=== PATIENT | female | born 1945 | race Caucasian/White ===

== ENCOUNTER 2017-02-28 10:53 | Outpatient (CLI) | payer MEDICARE ==
[2017-02-28 11:26] LABS: #Basophils 0.1 thou/uL (0.0-0.2); #Eosinphils 0.2 thou/uL (0.0-0.7); #Lymphocytes 0.8 thou/uL (1.20-3.40); #Monocytes 0.4 thou/uL (0.11-0.59); #Neutrophils 4.9 thou/uL (1.40-6.50); %Basophils 0.9 % (0.0-1.0); %Eosinophils 3.2 % (0.0-10.0); %Monocytes 6.1 % (0.0-10.0); %Neutrophils 77.8 % (42.0-75.0); Hemoglobin 12.1 g/dL (12.0-16.0); Mean Corpuscular HGB CONC 34.5 g/dL (32.0-36.0); Mean Corpuscular Volume 89.8 fl (81.0-99.0); Mean Platelet Volume 7.6 fL (7.4-10.4); Platelet Count 184 thou/uL (130-400); RBC Distribution Width 12.8 % (11.5-14.5); Red Blood Cell (RBC) Count 3.91 mill/uL (4.20-5.40); White Blood Cell (WBC) Count 6.2 thou/uL (4.8-10.8)
[2017-02-28 11:34] LABS: ALT (SGPT) 14 U/L (8-55); AST (SGOT) 16 U/L (5-34); Albumin 3.8 g/dL (3.4-4.8); Alkaline Phosphatase 102 U/L (40-150); Anion Gap 13 mmol/L (10-20); BUN (Urea Nitrogen) 14 mg/dL (9.8-20.1); Bilirubin, Total 0.6 mg/dL (0.2-1.2); Calc. Creatinine Clearance 0 mL/min (70-130); Calcium 9.8 mg/dL (7.8-10.44); Carbon Dioxide 23 mmol/L (23-31); Cardiac Risk 2.5 (Less than 4.5); Chloride 99 mmol/L (98-107); Cholesterol 150 mg/dl (< 200 Desired); Estimated GFR-MDRD Greater than 90; Globulin 2.8 g/dL (2.4-3.5); Glucose 95 mg/dL (83-110); HDL Cholesterol 59 mg/dL (>60 Neg Risk); LDL Cholesterol, Calculated 81 mg/dL; Potassium 4.5 mmol/L (3.5-5.1); Protein, Total 6.6 g/dL (6.0-8.3); Sodium 130 mmol/L (136-145); Triglycerides 50 mg/dL (Less than 150)
[2017-02-28 11:50] LABS: Free T4 (Free Thyroxine) 0.71 ng/dL (0.70-1.48); Thyroid Stimulating Hormone 0.8556 uIU/mL (0.35-4.94)
== END 2017-02-28 10:54 | disposition home or self-care (01) ==
LOC: MADLABBHPM 10:53
PROVIDERS: ATTEND Family Medicine
DX: I48.91 Unspecified atrial fibrillation (principal); E03.9 Hypothyroidism, unspecified; E78.5 Hyperlipidemia, unspecified
CPT/HCPCS: 36415; 80053; 80061; 84439; 84443; 84481; 85025

== ENCOUNTER 2018-02-21 12:57 | Outpatient (CLI) | payer MEDICARE ==
--- NOTE | 2018-02-21 14:03 | RAD ---
PA AND LATERAL OF THE CHEST: INDICATION: Irregular heartbeat. COMPARISON: Prior exam dated 04/01/14 and 07/04/17. FINDINGS: There is cardiomegaly with pulmonary vascular congestion. Costophrenic angles are excluded. There i s a dual-lead pacemaker overlying the left chest wall. IMPRESSION: Cardiomegaly with pulmonary vascular congestion. Recommend correlation. POS: [facility]
== END 2018-02-21 12:58 | disposition home or self-care (01) ==
LOC: MADRAD 12:57
PROVIDERS: ATTEND Internal Medicine Cardiovascular Disease
DX: Z48.812 Encounter for surgical aftercare following surgery on the circulatory system (principal); I51.7 Cardiomegaly; R09.89 Other specified symptoms and signs involving the circulatory and respiratory systems; Z95.0 Presence of cardiac pacemaker
CPT/HCPCS: 71046

== ENCOUNTER 2018-05-21 09:56 | Emergency (ER) | payer MEDICARE ==
[2018-05-21 10:42] LABS: #Basophils 0.1 thou/uL (0.0-0.2); #Eosinphils 0.2 thou/uL (0.0-0.7); #Lymphocytes 0.5 thou/uL (1.20-3.40); #Monocytes 0.6 thou/uL (0.11-0.59); #Neutrophils 7.7 thou/uL (1.40-6.50); %Basophils 0.6 % (0.0-1.0); %Eosinophils 1.9 % (0.0-10.0); %Lymphocytes 5.8 % (21.0-51.0); %Monocytes 6.5 % (0.0-10.0); %Neutrophils 85.1 % (42.0-75.0); Hemoglobin 10.5 g/dL (12.0-16.0); Mean Corpuscular HGB CONC 33.2 g/dL (32.0-36.0); Mean Corpuscular Hemoglobin 28.5 pg (27.0-31.0); Mean Corpuscular Volume 85.7 fL (78.0-98.0); Mean Platelet Volume 7.6 fL (7.4-10.4); Platelet Count 240 thou/uL (130-400); RBC Distribution Width 14.1 % (11.5-14.5); Red Blood Cell (RBC) Count 3.69 mill/uL (4.20-5.40)
[2018-05-21 10:50] LABS: Bilirubin Negative (Negative); Blood, Urine Moderate (Negative); Glucose, Urine (Dipstick) Negative (Negative); Leukocyte Moderate (Negative); Nitrite Positive (Negative); Protein, Urine (Dipstick) Trace mg/dL (Neg-Trace); Specific Gravity, Urine 1.015 (1.005-1.030); pH, Urine 8.5 (5.0-9.0)
[2018-05-21 10:53] LABS: Clarity Hazy (Clear)
[2018-05-21 10:54] LABS: Bacteria/HPF 3+ HPF (None Seen); Squamous Epithelial 0-3 HPF (0-3)
[2018-05-21 11:00] LABS: Anion Gap 10 mmol/L (10-20); BUN (Urea Nitrogen) 12 mg/dL (9.8-20.1); CK (CPK) 58 U/L (29-168); Calc. Creatinine Clearance 0 mL/min (70-130); Calcium 9.9 mg/dL (7.8-10.44); Carbon Dioxide 31 mmol/L (23-31); Chloride 94 mmol/L (98-107); Estimated GFR-MDRD 90; Glucose 139 mg/dL (83-110); Potassium 4.2 mmol/L (3.5-5.1); Sodium 131 mmol/L (136-145)
[2018-05-21 11:03] LABS: CKMB 1.8 ng/mL (0-6.6); Troponin I Less than 0.010 ng/mL (< 0.028)
[2018-05-21] MEDS ORDERED: Levofloxacin 500 mg/D5W 100 ml Premix Bag ONE (11:16)
[2018-05-21] MEDS ORDERED: Furosemide 40 MG/4 ML VIAL ONE (11:29)
[2018-05-21] MEDS ORDERED: Furosemide 20 MG/2 ML VIAL ONE (11:29)
--- NOTE | 2018-05-21 11:42 | RAD ---
CHEST ONE VIEW: HISTORY: Dyspnea. Chest pain. COMPARISON: Radiograph from 03/09/2018. FINDINGS: The lungs are mildly hypoinflated. Small left effusion. Mild pulmonary venous congestion and pulmon olga edema. Mild cardiomegaly. Old right humeral diaphyseal fracture. IMPRESSION: 1. Cardiomegaly. 2. Small left effusion. 3. Pulmonary venous congestion. POS: [facility]
== END 2018-05-21 12:17 | disposition short-term general hospital (02) ==
LOC: MADERS 09:56
DX: I11.0 Hypertensive heart disease with heart failure (principal); I50.9 Heart failure, unspecified; E78.5 Hyperlipidemia, unspecified; I48.91 Unspecified atrial fibrillation; E03.9 Hypothyroidism, unspecified; F31.9 Bipolar disorder, unspecified; J44.9 Chronic obstructive pulmonary disease, unspecified; Z86.73 Personal history of transient ischemic attack (TIA), and cerebral infarction without residual deficits
CPT/HCPCS: 36415; 71045; 80048; 81003; 81015; 82553; 83880; 84484; 85025; 87040; 87077; 87086; 87186; 93005; 94760; 96365; 96375; J1940; J1956

== ENCOUNTER 2018-05-24 18:49 | Inpatient (IN) | payer MEDICARE ==
[2018-05-25] MEDS ORDERED: Pancrelipase DR 12000 1 CAP FS PRN (00:21)
[2018-05-25] MEDS ORDERED: Sodium Bicarbonate Tab 325 MG TAB PER TUBE PRN (00:21)
[2018-05-25] MEDS ORDERED: Polyethylene Glycol 3350 17 GM Packet PER TUBE PRN (00:26)
[2018-05-25] MEDS ORDERED: Bisacodyl 10 MG SUPP PR PRN (00:27)
[2018-05-25] MEDS ORDERED: Ondansetron ODT 4 MG TAB SL PRN (00:27)
[2018-05-25] MEDS ORDERED: Albuterol Sulfate 2.5 mg/3 ml Neb NEB PRN (00:28)
[2018-05-25] MEDS: traMADol HCl 50 MG TAB PER TUBE PRN ×2 (04:53→19:18)
[2018-05-25] MEDS: Thyroid 30 MG TAB PER TUBE SCH (05:09)
[2018-05-25] MEDS: Albuterol Sulfate 2.5 mg/3 ml Neb NEB SCH ×2 (08:29→19:18)
[2018-05-25] MEDS: levETIRAcetam 500 mg/5 ml Oral Solution PER TUBE SCH ×2 (08:47→20:21)
[2018-05-25] MEDS: OXcarbazepine 150 MG TAB PER TUBE SCH ×2 (08:47→20:22)
[2018-05-25] MEDS: Acetaminophen 325 MG TAB PER TUBE PRN (08:47)
[2018-05-25] MEDS: Carvedilol 6.25 MG TAB PER TUBE SCH ×2 (08:54→20:20)
[2018-05-25] MEDS: Furosemide 20 MG TAB PER TUBE SCH (08:54)
[2018-05-25] MEDS: Ascorbic Acid 500 mg Chewable Tablet PER TUBE SCH (08:54)
[2018-05-25] MEDS: Oxybutynin 5 MG TAB PER TUBE SCH ×2 (08:54→20:22)
[2018-05-25] MEDS: Lisinopril 10 MG TAB PER TUBE SCH ×2 (08:54→20:21)
[2018-05-25] MEDS: Chlorhexidine Gluconate 15 ML UDCUP SSP SCH ×4 (08:55→20:20)
[2018-05-25] MEDS: Atorvastatin Calcium 10 MG TAB PER TUBE SCH (20:20)
[2018-05-25] MEDS: Escitalopram Oxalate 10 mg Tablet PER TUBE SCH (20:21)
[2018-05-26] MEDS: traMADol HCl 50 MG TAB PER TUBE PRN ×2 (02:20→16:26)
[2018-05-26] MEDS: Thyroid 30 MG TAB PER TUBE SCH (05:30)
[2018-05-26 06:39] LABS: ALT (SGPT) 17 U/L (8-55); AST (SGOT) 15 U/L (5-34); Albumin 2.8 g/dL (3.4-4.8); Alkaline Phosphatase 102 U/L (40-150); Anion Gap 11 mmol/L (10-20); BUN (Urea Nitrogen) 16 mg/dL (9.8-20.1); Bilirubin, Total 0.2 mg/dL (0.2-1.2); Calc. Creatinine Clearance 139 mL/min (70-130); Calcium 9.4 mg/dL (7.8-10.44); Carbon Dioxide 31 mmol/L (23-31); Chloride 96 mmol/L (98-107); Estimated GFR-MDRD Greater than 90; Globulin 2.7 g/dL (2.4-3.5); Glucose 131 mg/dL (83-110); Potassium 3.5 mmol/L (3.5-5.1); Protein, Total 5.5 g/dL (6.0-8.3); Sodium 134 mmol/L (136-145)
[2018-05-26 06:51] LABS: #Basophils 0.1 thou/uL (0.0-0.2); #Eosinphils 0.4 thou/uL (0.0-0.7); #Lymphocytes 0.6 thou/uL (1.20-3.40); #Monocytes 0.6 thou/uL (0.11-0.59); #Neutrophils 5.1 thou/uL (1.40-6.50); %Basophils 1.3 % (0.0-1.0); %Eosinophils 5.6 % (0.0-10.0); %Lymphocytes 9.1 % (21.0-51.0); %Monocytes 8.5 % (0.0-10.0); %Neutrophils 75.5 % (42.0-75.0); Hemoglobin 9.2 g/dL (12.0-16.0); Mean Corpuscular HGB CONC 33.6 g/dL (32.0-36.0); Mean Corpuscular Hemoglobin 28.8 pg (27.0-31.0); Mean Corpuscular Volume 85.7 fL (78.0-98.0); Mean Platelet Volume 7.4 fL (7.4-10.4); Platelet Count 211 thou/uL (130-400); RBC Distribution Width 13.7 % (11.5-14.5); Red Blood Cell (RBC) Count 3.19 mill/uL (4.20-5.40); White Blood Cell (WBC) Count 6.8 thou/uL (4.8-10.8)
[2018-05-26] MEDS: Albuterol Sulfate 2.5 mg/3 ml Neb NEB SCH ×2 (07:32→19:40)
[2018-05-26] MEDS: Carvedilol 6.25 MG TAB PER TUBE SCH ×2 (09:05→20:20)
[2018-05-26] MEDS: Ascorbic Acid 500 mg Chewable Tablet PER TUBE SCH (09:05)
[2018-05-26] MEDS: Oxybutynin 5 MG TAB PER TUBE SCH ×2 (09:05→20:22)
[2018-05-26] MEDS: Lisinopril 10 MG TAB PER TUBE SCH ×2 (09:05→20:21)
[2018-05-26] MEDS: OXcarbazepine 150 MG TAB PER TUBE SCH ×2 (09:05→20:21)
[2018-05-26] MEDS: Acetaminophen 325 MG TAB PER TUBE PRN (09:06)
[2018-05-26] MEDS: Chlorhexidine Gluconate 15 ML UDCUP SSP SCH ×4 (09:06→20:23)
[2018-05-26] MEDS: levETIRAcetam 500 mg/5 ml Oral Solution PER TUBE SCH ×2 (09:06→20:21)
[2018-05-26] MEDS: Atorvastatin Calcium 10 MG TAB PER TUBE SCH (20:19)
[2018-05-26] MEDS: Escitalopram Oxalate 10 mg Tablet PER TUBE SCH (20:20)
[2018-05-26] MEDS: hydrALAZINE 10 MG TAB PO SCH (20:21)
[2018-05-27] MEDS: traMADol HCl 50 MG TAB PER TUBE PRN ×3 (00:46→21:47)
[2018-05-27] MEDS: Albuterol Sulfate 2.5 mg/3 ml Neb NEB SCH ×2 (07:34→18:58)
--- NOTE | 2018-05-27 07:49 | PRG ---
DATE OF SERVICE: 05/26/2018 SUBJECTIVE: The patient says she is feeling good today. She has had a good night sleep. She is doing good with her pureed diet and she had no complaints this morning. OBJECTIVE: GENERAL: The patient is sitting up in bed, eating her oatmeal. She is alert, appears in no distress. VITAL SIGNS: Shows a temp of 97.6, pulse 60, respirations 20, O2 saturation 96% on 2 L, and blood pressure 187/93. LUNGS: Clear. HEART: Regular rate. NEUROLOGIC: The patient has a dense left hemiparalysis and right facial weakness. LABORATORY DATA: Her lab shows a hemoglobin and hematocrit of 9.2 and 27.3, white cell count 6800 with 76% segs, 9% lymphocytes, and platelet count of 211. Sodium 134, potassium 3.5, BUN 16, creatinine 0.53, FBS 131, and albumin 2.8. ASSESSMENT: copy imp from done on 05/25 1. Severe generalized weakness and presently, nonambulatory following a hemorrhagic stroke on 02/28/2018. 2. Diastolic heart failure. a. Acute exacerbation, requiring hospitalization from 05/21/2018 through 05/24/2018 at [place]. b. Echocardiogram on 05/22 showed ejection fraction of 55% to 60%, diastolic dysfunction, moderate-severe dilated left atrium, mild to moderate aortic regurgitation, mild tricuspid regurgitation, and moderate elevated pulmonary artery pressure. 1. History of a large right basal ganglia hemorrhagic stroke while on anticoagulant Xarelto on 02/28/2018. a. Initially required ventilatory support, tracheostomy, and PEG tube with later removal of the trach. b. Leaving the patient with a dense left hemiparalysis and left facial weakness and dysphagia. c. Still required enteral feeding. d. On seizure prophylaxis with Keppra. 2. Dysphagia. a. Secondary to the hemorrhagic stroke on 02/28. b. Required enteral feeding at nighttime through her PEG. c. Improving where she is tolerating a pureed diet with nectar thickened liquids. 3. Hypertension. 4. History of atrial fibrillation. a. Status post multiple ablations. b. Status post pacemaker replacement for bradycardia. c. Had been on Xarelto that was stopped following her hemorrhagic stroke on 02/28. 5. Deep vein thrombosis involving the left leg. a. Status post placement of an inferior vena cava filtration device on 03/15/2018. 6. Hyperlipidemia. 7. Hypothyroidism. 8. Bipolar disorder. PLAN: The patient is doing very well, seems to be tolerating her tube feeding fine and also doing well with her oral feeding with a pureed diet with nectar thickened liquids. She is taking her medicines by these being crushed and mixed with pudding without any difficulty. We will continue present care, PT/OT, and Speech Therapy will continue to work with her. Job ID: [id number]
--- NOTE | 2018-05-27 08:20 | HP ---
CHIEF COMPLAINT: Weakness. PRESENT ILLNESS: The patient is a 72-year-old white female, who has a history of hypertension; atrial fibrillation with multiple ablations, who had been on anticoagulants; bipolar disorder; hypothyroidism; and hyperlipidemia. The patient had had a large hemorrhagic stroke on 02/28/2018, was hospitalized at [facility] from 02/28/2018 until 03/14/2018. This was a large area of hemorrhage involving the right basal ganglia, leaving her with dysphagia and dense left hemiparalysis, initially required ventilatory support and a trach and placement of a PEG. The patient was minimally responsive at the time of her discharge. She was discharged to [facility] on 03/14. There, she developed swelling in her left lower extremity and was sent to [facility] and was found to have a DVT of the left leg. She had an IVC filter placed and then was sent back to the [facility]. At the [facility], she showed gradual improvement and her trach was able to be removed. She was then transferred to [facility] in [place], [place], where she remained until 05/15/2018. While at the rehab center, she did well with her breathing, was able to advance where she was tolerating being up in a chair and was doing better with her swallowing. She has been followed by a speech therapist and was tolerating a blended diet with nectar-thickened liquids, but continued on her enteral feeding through a PEG tube in the night. This care was continued at [facility] with PT and OT continued to assist with her care. The patient was transferred to [facility] on 05/21/2018 because of shortness of breath and low O2 saturation. She was found to be in mild congestive heart failure, and an echocardiogram was done there that showed an ejection fraction of 55% to 60%, there was evidence of diastolic dysfunction, the left atrium was moderately severely dilated. She had moderate aortic regurgitation, mild tricuspid regurgitation, and moderate elevation of the pulmonary artery pressure. She had a very small pericardial effusion with no evidence of tamponade. The patient was treated for the congestive heart failure and diuresed with correction of the hypoxemia and resolution of her sense of shortness of breath. She has been treated now with furosemide 20 mg every other day. She has done well with her eating, with a blended diet and also, she has done well with enteral feeding. There was some difficulty with the enteral feedings. It seems the tube was resistant to flow. This was evaluated by aircraft layout worker, Dr. Killian, and she underwent radiologic studies with instillation of dye through the G-tube on 05/24, which showed that the tube was working well, was in good position, and no obstruction, and flushed well. Since then, her feedings in the evening have gone well. The patient's condition improved and it was elected to bring her to [facility] for purpose of continued physical therapy, G-tube feeding, and continued speech therapy. She also, on admission, was found to have an abnormal urine culture, growing Pseudomonas aeruginosa from the culture of 05/21. The organism was resistant to the ceftriaxone that she was receiving, but sensitive to cefepime, ceftazidime, meropenem, and tobramycin. The patient has indwelling Araujo catheter. The patient was seen in consult by Dr. Franco, Infectious Disease, who felt that the patient had no firm clinical or laboratory evidence to suggest invasive urinary tract infection and he advised withholding antibiotic therapy and discontinuation of the Araujo catheter with watching to be sure she does not develop any significant interval retention. The patient was transferred to [facility] on the evening of 05/24/2018. Her G-tube feedings for the night have gone well. This morning, she has been up and eating her blended diet and is taking her medicines, crushed and mixed with pudding without any difficulty. Her , Fredis Ziegler, is with her and I had an opportunity to review her records as mentioned above and visit with him. She has had no new complaint. PAST MEDICAL HISTORY: Hypertension; atrial fibrillation, status post multiple ablations, had been on Xarelto, which was stopped at the time of her hemorrhagic stroke on 02/28; she has hypothyroidism; hyperlipidemia; bipolar disorder. Large right basal ganglia hemorrhagic stroke while on Xarelto on 02/28/2018, leaving her with dysphagia and dense left hemiparalysis. PAST SURGICAL HISTORY: She has had multiple cardiac ablations for the atrial fibrillation, pacemaker placement for bradycardia, appendectomy, cholecystectomy, hysterectomy, trach placement and later removal, PEG tube placement, and placement of an inferior VC filter on 03/15/2018. PRESENT MEDICATIONS: 1. Acetaminophen 650 mg every 4 hours per G-tube as needed. 2. Albuterol inhalation solution by nebulizer b.i.d. and every 6 hours as needed. 3. Vitamin C 500 mg per G-tube daily. 4. Atorvastatin 5 mg per G-tube daily. 5. Dulcolax 10 mg suppository 1 daily p.r.n. constipation. 6. Carvedilol 6.25 mg per G-tube b.i.d. 7. Chlorhexidine gluconate 15 mL to swish in her mouth four times a day. 8. Lexapro 20 mg daily. 9. Furosemide 20 mg per G-tube every 48 hours. 10. Keppra 500 mg per G-tube b.i.d. for seizure prophylaxis. 11. Lisinopril 20 mg per G-tube b.i.d. 12. Zofran 4 mg sublingual p.r.n. nausea. 13. Trileptal 600 mg per G-tube at bedtime. 14. Trileptal 300 mg . 15. Oxybutynin 5 mg per G-tube b.i.d. 16. MiraLAX 17 g per G-tube daily as needed. 17. Pacific Thyroid 180 mg per G-tube daily. 18. Tramadol 50 mg every 8 hours per G-tube p.r.n. ALLERGIES: CODEINE, FISH PRODUCTS, PENICILLIN, PROPAFENONE, AND SHELLFISH. REVIEW OF SYSTEMS: GENERAL: The patient thinks she is doing better. She had no complaint today. HEENT: She denies any headaches. She thinks she is doing better with her oral feedings. PULMONARY: No shortness of breath. CARDIOVASCULAR: No chest pain. GI: No nausea or vomiting. Being fed via enteral feeding during the night and diet that is pureed with nectar-thickened liquids orally during the day. NEUROPSYCHIATRIC: The patient had a repeat CT scan while hospitalized at [place] on 05/22/2018 that shows interval decrease in the density of the large left subacute hematoma of the right basal ganglia with decrease in the associated mass effect. No midline shift. HABITS: Alcohol, none. Tobacco, none. SOCIAL HISTORY: The patient is and , Fredis Ziegler, had been very attentive during her hospitalization and convalescence. CODE STATUS: Full code. PHYSICAL EXAMINATION: GENERAL: Shows a pleasant 72-year-old white female, who is sitting up in bed and eating her pureed breakfast. She appears in no distress. VITAL SIGNS: Her temperature is 97.7, her pulse is 61, blood pressure 186/93, respirations 18, O2 saturation 96% on room air. HEENT: Her head, normocephalic. Eyes, pupils are equal, round, and reactive. Ears, left TM blocked by some cerumen. Right TM clear. Nose normal. Mouth and throat normal. The patient has mild left facial weakness. NECK: Carotids are equal and strong. No bruits. Thyroid not enlarged. LUNGS: Clear. HEART: Regular rate. The patient has a well-healed incision of the left upper anterior chest from her pacemaker placement. Her heart has regular rate. No murmurs. ABDOMEN: G-tube is in the left upper quadrant. Site is clean. There is no drainage. Abdomen, soft and nontender. EXTREMITIES: No edema. NEUROLOGIC: The patient is alert, recognizes me. Her speech is good. The patient has a very dense left hemiparalysis and some mild left facial weakness. IMPRESSION: 1. Severe generalized weakness and presently, nonambulatory following a hemorrhagic stroke on 02/28/2018. 2. Diastolic heart failure. a. Acute exacerbation, requiring hospitalization from 05/21/2018 through 05/24/2018 at [place]. b. Echocardiogram on 05/22 showed ejection fraction of 55% to 60%, diastolic dysfunction, moderate-severe dilated left atrium, mild to moderate aortic regurgitation, mild tricuspid regurgitation, and moderate elevated pulmonary artery pressure. 3. History of a large right basal ganglia hemorrhagic stroke while on anticoagulant Xarelto on 02/28/2018. a. Initially required ventilatory support, tracheostomy, and PEG tube with later removal of the trach. b. Leaving the patient with a dense left hemiparalysis and left facial weakness and dysphagia. c. Still required enteral feeding. d. On seizure prophylaxis with Keppra. 4. Dysphagia. a. Secondary to the hemorrhagic stroke on 02/28. b. Required enteral feeding at nighttime through her PEG. c. Improving where she is tolerating a pureed diet with nectar thickened liquids. 5. Hypertension. 6. History of atrial fibrillation. a. Status post multiple ablations. b. Status post pacemaker replacement for bradycardia. c. Had been on Xarelto that was stopped following her hemorrhagic stroke on 02/28. 7. Deep vein thrombosis involving the left leg. a. Status post placement of an inferior vena cava filtration device on 03/15/2018. 8. Hyperlipidemia. 9. Hypothyroidism. 10. Bipolar disorder. PLAN: The patient has been admitted to [facility] for PT, OT, and speech therapy. We will continue on her present medicines. Her blood pressure was elevated this morning, but she has not yet had any antihypertensive, this will be monitored. We will continue the stroke prophylaxis with the Keppra. The patient is on sequential compression devices for the lower legs. All meals will be with her sitting directly upright and we will continue the enteral feeding during the night. See orders. Job ID: [id number]
[2018-05-27] MEDS: Carvedilol 6.25 MG TAB PER TUBE SCH ×2 (09:24→22:12)
[2018-05-27] MEDS: Lisinopril 10 MG TAB PER TUBE SCH ×2 (09:24→21:28)
[2018-05-27] MEDS: levETIRAcetam 500 mg/5 ml Oral Solution PER TUBE SCH ×2 (09:24→21:29)
[2018-05-27] MEDS: hydrALAZINE 10 MG TAB PO SCH ×2 (09:25→21:35)
[2018-05-27] MEDS: Ascorbic Acid 500 mg Chewable Tablet PER TUBE SCH (09:26)
[2018-05-27] MEDS: OXcarbazepine 150 MG TAB PER TUBE SCH ×2 (09:26→21:27)
[2018-05-27] MEDS: Furosemide 20 MG TAB PER TUBE SCH (09:26)
[2018-05-27] MEDS: Chlorhexidine Gluconate 15 ML UDCUP SSP SCH ×4 (09:26→21:38)
[2018-05-27] MEDS: Oxybutynin 5 MG TAB PER TUBE SCH ×2 (09:26→21:28)
--- NOTE | 2018-05-27 10:14 | PRG ---
DATE OF SERVICE: 05/27/2018 SUBJECTIVE: The patient had a good night. Nurses said everything went well with her. She slept well. Her tube feeding has been going well. Yesterday, she did well with her pureed diet. This morning, she has no complaint. OBJECTIVE: GENERAL: The patient is lying in bed with the head of the bed elevated. She is alert, appears comfortable, in no distress. VITAL SIGNS: Her temp is 97.9, pulse 65, respirations 18, O2 saturation 97%, and blood pressure 187/91. Has not yet had morning medications. Last evening pressure 170/75. Was just started on hydralazine 10 mg b.i.d. yesterday. LUNGS: Clear. HEART: Regular rate. EXTREMITIES: No edema. NEUROLOGIC: The patient has dense left hemiparalysis. ASSESSMENT: 1. Diastolic congestive heart failure. a. Resolved with no evidence of recurrence as of 05/27/2018. 2. History of a large right basal ganglia hemorrhagic stroke while on Xarelto. a. It has left the patient with a dense left hemiparalysis and aphasia and presently nonambulatory. b. Stable with recent CT scan showing some decrease in the area of the stroke. 3. Dysphagia. a. Secondary to the hemorrhagic stroke. b. Improved, presently tolerating oral feedings with a pureed diet, nectar-thickened liquids, and enteral feedings through a PEG tube at night. 4. Hypertension. a. Controlled, not adequate, but a little better than yesterday as of 05/27. 5. Hypothyroidism. 6. History of atrial fibrillation. a. Status post multiple ablations. b. Had been on Xarelto, which was stopped after the hemorrhagic stroke in February 2018. 7. Deep vein thrombosis of the left lower leg. a. Status post inferior vena cava filtration placement. 8. Bipolar disorder. a. Controlled. 9. Seizure prophylaxis. a. No seizures as of 05/27/2018. PLAN: Continue present care. Continue PT, OT, and Speech Therapy. Job ID: [id number]
[2018-05-27] MEDS: Acetaminophen 325 MG TAB PER TUBE PRN (15:43)
[2018-05-27] MEDS: Thyroid 30 MG TAB PER TUBE SCH (18:54)
[2018-05-27] MEDS: Atorvastatin Calcium 10 MG TAB PER TUBE SCH (21:27)
[2018-05-27] MEDS: Escitalopram Oxalate 10 mg Tablet PER TUBE SCH (21:28)
[2018-05-28] MEDS: Thyroid 30 MG TAB PER TUBE SCH (05:32)
[2018-05-28] MEDS: Albuterol Sulfate 2.5 mg/3 ml Neb NEB SCH ×2 (07:31→18:07)
[2018-05-28] MEDS: OXcarbazepine 150 MG TAB PER TUBE SCH ×2 (09:21→20:03)
[2018-05-28] MEDS: Ascorbic Acid 500 mg Chewable Tablet PER TUBE SCH (09:21)
[2018-05-28] MEDS: Chlorhexidine Gluconate 15 ML UDCUP SSP SCH ×4 (09:21→20:04)
[2018-05-28] MEDS: Oxybutynin 5 MG TAB PER TUBE SCH ×2 (09:21→20:06)
[2018-05-28] MEDS: Carvedilol 6.25 MG TAB PER TUBE SCH ×2 (09:21→20:04)
[2018-05-28] MEDS: Lisinopril 10 MG TAB PER TUBE SCH ×2 (09:21→20:03)
[2018-05-28] MEDS: levETIRAcetam 500 mg/5 ml Oral Solution PER TUBE SCH ×2 (09:21→20:03)
[2018-05-28] MEDS: traMADol HCl 50 MG TAB PER TUBE PRN ×2 (09:27→17:41)
[2018-05-28] MEDS: hydrALAZINE 25 MG TAB PO SCH ×2 (09:39→20:05)
[2018-05-28] MEDS ORDERED: Sodium Chloride Irrig Solution 250 ML BOT ONE (10:00)
[2018-05-28] MEDS: Acetaminophen 325 MG TAB PER TUBE PRN ×2 (12:33→20:17)
--- NOTE | 2018-05-28 13:50 | PRG ---
DATE OF SERVICE: 05/28/2018 SUBJECTIVE: The patient said she had a good night. Nurses says she has been doing fine. She is taking her medicines, crushed into pudding without any problems. She is eating the pureed diet some, but not enough to where she can sustain her nutrition and fluid requirements by oral feeding alone. The tube feedings at night are going well. She is receiving the Jevity 1.5 calories/mL, at 55 mL/hr, and water at 35 mL/hr during the night. OBJECTIVE: GENERAL: The patient is lying in bed with the head elevated and turned on her left side. She is alert and talkative. Appears very comfortable and in no distress. VITAL SIGNS: Her vital signs show a temperature of 97.3, pulse 64, respirations 16, and O2 sat 99%. Her blood pressure this morning was 199/96, last evening 168/71. LUNGS: Clear. HEART: Regular rate. NEUROLOGIC: The patient is alert. She is talkative, but sometimes a little slow to answer our questions. She has a dense left hemiparalysis. ASSESSMENT: 1. Severe generalized weakness and presently, nonambulatory following a hemorrhagic stroke on 02/28/2018. 2. Diastolic heart failure. a. Acute exacerbation, requiring hospitalization from 05/21/2018 through 05/24/2018 at [place]. b. Echocardiogram on 05/22 showed ejection fraction of 55% to 60%, diastolic dysfunction, moderate-severe dilated left atrium, mild to moderate aortic regurgitation, mild tricuspid regurgitation, and moderate elevated pulmonary artery pressure. c. No evidence of acute congestive heart failure as of 05/28/2018. 1. History of a large right basal ganglia hemorrhagic stroke while on anticoagulant Xarelto on 02/28/2018. a. Initially required ventilatory support, tracheostomy, and PEG tube with later removal of the trach. b. Leaving the patient with a dense left hemiparalysis and left facial weakness and dysphagia. c. Still required enteral feeding. d. On seizure prophylaxis with Keppra. e. Stable as of 05/28/2018. 2. Dysphagia. a. Secondary to the hemorrhagic stroke on 02/28. b. Required enteral feeding at nighttime through her PEG. c. Stable. Tolerating pureed diet with nectar thickened liquids and nighttime enteral feeding as of 05/28/2018. 3. Hypertension. 4. History of atrial fibrillation. a. Status post multiple ablations. b. Status post pacemaker replacement for bradycardia. c. Had been on Xarelto that was stopped following her hemorrhagic stroke on 02/28. 5. Deep vein thrombosis involving the left leg. a. Status post placement of an inferior vena cava filtration device on 03/15/2018. 6. Hyperlipidemia. 7. Hypothyroidism. 8. Bipolar disorder. PLAN: Continue present care. Continue PT and OT. Continue the nighttime enteral feedings. Job ID: [id number]
[2018-05-28] MEDS: Escitalopram Oxalate 10 mg Tablet PER TUBE SCH (20:04)
[2018-05-28] MEDS: Atorvastatin Calcium 10 MG TAB PER TUBE SCH (20:10)
[2018-05-29] MEDS: traMADol HCl 50 MG TAB PER TUBE PRN ×4 (00:20→22:07)
[2018-05-29] MEDS: Acetaminophen 325 MG TAB PER TUBE PRN ×2 (04:35→14:34)
[2018-05-29] MEDS: Thyroid 30 MG TAB PER TUBE SCH (06:07)
[2018-05-29] MEDS: Albuterol Sulfate 2.5 mg/3 ml Neb NEB SCH ×2 (06:08→18:25)
[2018-05-29] MEDS: OXcarbazepine 150 MG TAB PER TUBE SCH ×2 (09:21→21:12)
[2018-05-29] MEDS: hydrALAZINE 25 MG TAB PO SCH ×3 (09:21→21:11)
[2018-05-29] MEDS: Carvedilol 6.25 MG TAB PER TUBE SCH ×2 (09:21→21:11)
[2018-05-29] MEDS: Lisinopril 10 MG TAB PER TUBE SCH ×2 (09:21→21:12)
[2018-05-29] MEDS: Furosemide 20 MG TAB PER TUBE SCH (09:21)
[2018-05-29] MEDS: Oxybutynin 5 MG TAB PER TUBE SCH ×2 (09:21→21:12)
[2018-05-29] MEDS: Ascorbic Acid 500 mg Chewable Tablet PER TUBE SCH (09:22)
[2018-05-29] MEDS: Chlorhexidine Gluconate 15 ML UDCUP SSP SCH ×4 (09:22→21:11)
[2018-05-29] MEDS: levETIRAcetam 500 mg/5 ml Oral Solution PER TUBE SCH ×2 (09:22→21:12)
--- NOTE | 2018-05-29 14:43 | PRG ---
DATE OF SERVICE: 05/29/2018 SUBJECTIVE: The patient said she had a good night. She had no complaint. OBJECTIVE: GENERAL: The patient is lying in bed with the head of the bed elevated. She is awake and talkative. VITAL SIGNS: Her temperature is 97.1, pulse 63, respirations 18, O2 saturation 98% on a 0.5 L. Blood pressure 183/85, last evening was 168/71. LUNGS: Clear. HEART: Regular rate. NEUROLOGIC: The patient is alert, has a dense left hemiparalysis. ASSESSMENT: 1. Severe generalized weakness. a. Essentially bed confined. Requiring assistance with all ADLs as of 05/29. 2. Diastolic heart failure. a. Acute exacerbation, requiring hospitalization from 05/21/2018 through at [place]. b. Echocardiogram on 05/22 showed ejection fraction of 55% to 60%, diastolic dysfunction, moderate-severe dilated left atrium, mild to moderate aortic regurgitation, mild tricuspid regurgitation, and moderate elevated pulmonary artery pressure. c. No evidence of acute congestive heart failure as of 05/29/2018. 3. History of a large right basal ganglia hemorrhagic stroke while on anticoagulant Xarelto on 02/28/2018. a. Initially required ventilatory support, tracheostomy, and PEG tube with later removal of the trach. b. Leaving the patient with a dense left hemiparalysis and left facial weakness and dysphagia. c. Still requires enteral feeding at night. d. On seizure prophylaxis with Keppra. e. Stable as of 05/28/2018. 4. Dysphagia. a. Secondary to the hemorrhagic stroke on 02/28. b. Requires enteral feeding at nighttime through her PEG. c. Stable. Tolerating pureed diet with nectar thickened liquids during the day and nighttime enteral feeding as of 05/29/2018. 5. Hypertension. a. Still not adequately controlled.64. History of atrial fibrillation. a. Status post multiple ablations. b. Status post pacemaker replacement for bradycardia. c. Regular rate, rate controlled as of 05/29. d. Had been on Xarelto that was stopped following her hemorrhagic stroke on 02/28/2018. 6. Deep vein thrombosis involving the left leg. a. Status post placement of an inferior vena cava filtration device on . 7. Hyperlipidemia. 8. Hypothyroidism. 9. Bipolar disorder. PLAN: Continue present care. Continue PT and OT. Job ID: [id number] [facility]
[2018-05-29 17:54] VITALS: BMI 31.9
[2018-05-29] MEDS: Atorvastatin Calcium 10 MG TAB PER TUBE SCH (21:10)
[2018-05-29] MEDS: Escitalopram Oxalate 10 mg Tablet PER TUBE SCH (21:11)
[2018-05-30] MEDS: Thyroid 30 MG TAB PER TUBE SCH (05:29)
[2018-05-30] MEDS: traMADol HCl 50 MG TAB PER TUBE PRN ×3 (05:40→20:09)
[2018-05-30] MEDS: Albuterol Sulfate 2.5 mg/3 ml Neb NEB SCH ×2 (07:27→19:00)
[2018-05-30] MEDS: Ascorbic Acid 500 mg Chewable Tablet PER TUBE SCH (08:54)
[2018-05-30] MEDS: Acetaminophen 325 MG TAB PER TUBE PRN (08:54)
[2018-05-30] MEDS: Lisinopril 10 MG TAB PER TUBE SCH ×2 (08:54→20:10)
[2018-05-30] MEDS: Carvedilol 6.25 MG TAB PER TUBE SCH ×2 (08:54→20:11)
[2018-05-30] MEDS: levETIRAcetam 500 mg/5 ml Oral Solution PER TUBE SCH ×2 (08:54→20:12)
[2018-05-30] MEDS: Oxybutynin 5 MG TAB PER TUBE SCH ×2 (08:55→20:10)
[2018-05-30] MEDS: Chlorhexidine Gluconate 15 ML UDCUP SSP SCH ×4 (08:55→20:13)
[2018-05-30] MEDS: hydrALAZINE 25 MG TAB PO SCH ×3 (08:55→20:30)
[2018-05-30] MEDS: OXcarbazepine 150 MG TAB PER TUBE SCH ×2 (08:57→20:10)
[2018-05-30] MEDS: Clotrimazole 1% Cream 15 GM TUBE TOP SCH ×2 (10:30→20:13)
--- NOTE | 2018-05-30 15:46 | PRG ---
DATE OF SERVICE: 05/30/2018 SUBJECTIVE: The patient says she is doing good this morning. Last evening, she was having a little bit more discomfort particularly in her back, hips, and shoulders. Yesterday, she had been up more in a wheelchair. Last evening, she was given tramadol and the interval was changed from 8 hour p.r.n. to 6 hours p.r.n. and this added dose of tramadol helped and she was able to sleep. Nurses report there is some redness beneath her breast and in the perineal area, for which she will be given clotrimazole cream. OBJECTIVE: GENERAL: The patient is lying in the bed with the head of the bed elevated about 45 degrees. She is alert, talkative, and recognizes me. VITAL SIGNS: Shows a temp 97.6, pulse 63, respirations 20, O2 saturation 97% on 2 L, and blood pressure 158/75. LUNGS: Clear. HEART: Regular rate. NEUROLOGIC: The patient is alert, sometimes a little slow in answering questions , but speech is very clear and understandable. She has a dense left hemiparalysis. ASSESSMENT: 1. Severe generalized weakness. a. Essentially bed confined. Requiring assistance with all ADLs as of 05/29. b. Improved where she is tolerating up in a wheelchair as of 05/30/2018. 2. Diastolic heart failure. a. Acute exacerbation, requiring hospitalization from 05/21/2018 through at [place]. b. Echocardiogram on 05/22 showed ejection fraction of 55% to 60%, diastolic dysfunction, moderate-severe dilated left atrium, mild to moderate aortic regurgitation, mild tricuspid regurgitation, and moderate elevated pulmonary artery pressure. c. No evidence of acute congestive heart failure as of 05/30/2018. 3. History of a large right basal ganglia hemorrhagic stroke while on anticoagulant Xarelto on 02/28/2018. a. Initially required ventilatory support, tracheostomy, and PEG tube with later removal of the trach. b. Leaving the patient with a dense left hemiparalysis and left facial weakness and dysphagia. c. Still requires enteral feeding at night. d. On seizure prophylaxis with Keppra. e. Stable as of 05/30/2018. 4. Dysphagia. a. Secondary to the hemorrhagic stroke on 02/28. b. Requires enteral feeding at nighttime through her PEG. c. Stable. Tolerating pureed diet with nectar thickened liquids during the day and nighttime enteral feeding as of 05/30/2018. 5. Hypertension. a. Control improved as of 05/30/2018. 6. History of atrial fibrillation. a. Status post multiple ablations. b. Status post pacemaker replacement for bradycardia. c. Regular rate, rate controlled as of 05/29. d. Had been on Xarelto that was stopped following her hemorrhagic stroke on 02/28/2018. 7. Deep vein thrombosis involving the left leg. a. Status post placement of an inferior vena cava filtration device on 2017. 8. Hyperlipidemia. 9. Hypothyroidism. 10. Bipolar disorder. PLAN: 1. Continue PT and OT. 2. We will order clotrimazole cream for the intertriginous areas b.i.d. Blood pressure is better after the hydralazine has been up to 25 mg t.i.d. We will continue this and continue to monitor BP. Job ID: [id number] [facility]
[2018-05-30] MEDS: Escitalopram Oxalate 10 mg Tablet PER TUBE SCH (20:08)
[2018-05-30] MEDS: Atorvastatin Calcium 10 MG TAB PER TUBE SCH (20:11)
[2018-05-31] MEDS: Thyroid 30 MG TAB PER TUBE SCH (05:47)
[2018-05-31] MEDS: Albuterol Sulfate 2.5 mg/3 ml Neb NEB SCH (06:00)
[2018-05-31] MEDS: traMADol HCl 50 MG TAB PER TUBE PRN (08:15)
[2018-05-31] MEDS: Oxybutynin 5 MG TAB PER TUBE SCH (08:16)
[2018-05-31] MEDS: Lisinopril 10 MG TAB PER TUBE SCH (08:16)
[2018-05-31] MEDS: Ascorbic Acid 500 mg Chewable Tablet PER TUBE SCH (08:16)
[2018-05-31] MEDS: Chlorhexidine Gluconate 15 ML UDCUP SSP SCH ×2 (08:16→13:23)
[2018-05-31] MEDS: OXcarbazepine 150 MG TAB PER TUBE SCH (08:16)
[2018-05-31] MEDS: Furosemide 20 MG TAB PER TUBE SCH (08:16)
[2018-05-31] MEDS: Carvedilol 6.25 MG TAB PER TUBE SCH (08:16)
[2018-05-31] MEDS: hydrALAZINE 25 MG TAB PO SCH (08:16)
[2018-05-31] MEDS: levETIRAcetam 500 mg/5 ml Oral Solution PER TUBE SCH (08:16)
[2018-05-31] MEDS: Clotrimazole 1% Cream 15 GM TUBE TOP SCH (08:17)
[2018-05-31 08:31] VITALS: BP 176/74; TEMP 98.2
[2018-05-31] MEDS: Acetaminophen 325 MG TAB PER TUBE PRN (13:22)
--- NOTE | 2018-06-03 07:47 | DIS ---
DATE OF ADMISSION: 05/24/2018 DATE OF DISCHARGE: 05/31/2018 FINAL DIAGNOSES: 1. Severe generalized weakness. a. Essentially bed confined. Requiring assistance with all ADLs as of 05/29. b. Improved where she is tolerating up in a wheelchair as of 05/30/2018. 2. Diastolic heart failure. a. Acute exacerbation, requiring hospitalization from 05/21/2018 through at [place]. b. Echocardiogram on 05/22 showed ejection fraction of 55% to 60%, diastolic dysfunction, moderate-severe dilated left atrium, mild to moderate aortic regurgitation, mild tricuspid regurgitation, and moderate elevated pulmonary artery pressure. c. No evidence of acute congestive heart failure as of 05/31/2018. 3. History of a large right basal ganglia hemorrhagic stroke while on anticoagulant Xarelto on 02/28/2018. a. Initially required ventilatory support, tracheostomy, and PEG tube with later removal of the trach. b. Leaving the patient with a dense left hemiparalysis and left facial weakness and dysphagia. c. Still requires enteral feeding at night. d. On seizure prophylaxis with Keppra. e. Stable as of 05/31/2018. 4. Dysphagia. a. Secondary to the hemorrhagic stroke on 02/28. b. Requires enteral feeding at nighttime through her PEG. c. Stable. Tolerating pureed diet with nectar thickened liquids during the day and nighttime enteral feeding as of 05/31/2018. 5. Hypertension. a. Control improved as of 05/30/2018. 6. History of atrial fibrillation. a. Status post multiple ablations. b. Status post pacemaker replacement for bradycardia. c. Regular rate, rate controlled as of 05/29. d. Had been on Xarelto that was stopped following her hemorrhagic stroke on 02/28/2018. 7. Deep vein thrombosis involving the left leg. a. Status post placement of an inferior vena cava filtration device on 2017. 9. Hyperlipidemia. 10. Hypothyroidism. 11. Bipolar disorder. HOSPITAL COURSE: The patient is a 72-year-old white female with a history of hypertension, atrial fibrillation with multiple ablations, who had been on anticoagulation with Xarelto. Additionally, she has a bipolar disorder that is stable; hypothyroidism, and hyperlipidemia. The patient had a large hemorrhagic stroke involving the right basal ganglia area on 02/28/2018 that has left her with a dense left hemiparalysis, dysphagia, and required an assistance with all ADLs. She is nonambulatory. The patient initially was cared for at [facility], required ventilatory support and a trach, later she was transferred to [facility] on 03/14. There, she developed swelling of the left lower leg and was transferred to [facility] and found to have a DVT of the left leg, for which she had an IVC filter placed and then sent back to the LTAC. The patient gradually improved. Her trach was able to be discontinued and she was then transferred to [facility] in [place]. There, she remained until 05/15/2018. She was then transferred to [facility] on 05/15 to their skilled care, receiving enteral feeding through her PEG tube at nighttime and had oral diet with pureed diet and nectar-thickened liquids. The patient was transferred to the emergency room on 05/21/2018 for shortness of breath and drop in her O2 saturation and was found to be in acute congestive heart failure from diastolic dysfunction. There, she was diuresed with excellent results. Her echocardiogram showed ejection fraction 55 % to 60%. There is diastolic dysfunction, yrwgmoxy-zd-[id number] dilated left atrium, xpov-cj-vbaxzueu aortic regurgitation, mild tricuspid regurgitation, moderately elevated pulmonary artery pressure. She remained at [facility] from until the evening of 05/24. Her congestive failure had resolved. She was transferred to [facility] later on the evening of 05/24 for skilled care to the extended care area for continued care. While at [facility], she continued to do well. She did have some elevation of blood pressure requiring some initiation of hydralazine. She had no evidence of congestive heart failure. Her O2 saturations in the daytime usually were in the 97% on 2 L. She gradually got where she could maintain her O2 saturation in 93% to 94% without O2. Her lungs remain clear. Neurologically, she was alert, talkative, but had a dense left hemiparalysis. PT and OT worked with her and she was able to sit up in a wheelchair and seemed to have a good balance with this. Speech Therapy worked with her. She did well with a blended diet with nectar-thickened liquids, but she would usually eat her oatmeal in the morning, but did not each as much at lunch and supper. She felt that she was not at a point where she could maintain her oral and nutritional requirements on oral feeding alone, hopefully this will improve. She was continued on her enteral feeding through the PEG tube at nighttime from 6:00 p.m. to 6:00 a.m. with Jevity 1.5 tito/mL at a rate of 55 mL/h and water at 35 mL/h. The G-tube was flushed with 60 mL of water before the initiation of the feeding and after completion of the feeding. She tolerated this well. Her condition was stable. Her insurance does allow to any further stay, but she was stable and arrangements were made for her to enter [facility] on 05/31/2018. She did develop a little redness in the perineal area and beneath the breasts, probably from the yeast infection that was treated with improvement with clotrimazole cream. LABORATORY DATA: On 05/26; hemoglobin and hematocrit 9.2 and 27.3, white cell count 6800 with 76% segs, 9% lymphocytes, and platelet count of 211. Sodium 134, potassium 3.5, glucose 131, BUN 16, creatinine 0.56, GFR greater than 90. Albumin 2.8. DIET: Pureed diet with nectar-thickened liquids and no straws. The patient should sit upright for all her meals. Enteral tube feeding through her PEG tube from 6: 00 p.m. to 6:00 a.m. with Jevity 1.5 tito/mL at 55 mL/h and water at 35 mL/h. Flush the G-tube with 60 mL of water before the feeding and after the feeding. Head of bed should be kept upright at above 30 degrees. ACTIVITIES: Up in a chair as tolerated. PT, OT, and Speech Therapy evaluation and treatment. O2 at 2 L by nasal cannula at nighttime when sleeping, in the daytime if O2 saturation below 92% or short of breath. Orthotics should be worn on the left hand and wrist. MEDICATIONS: 1. Acetaminophen 325 mg every 4 hours as needed for pain. 2. Albuterol inhalation solution 0.083% 3 mL by nebulizer b.i.d. and every 4 hours as needed. 3. Vitamin C 500 mg daily. 4. Atorvastatin 5 mg daily. 5. Dulcolax suppository 10 mg daily. 6. Carvedilol 6.25 mg b.i.d. 7. Chlorhexidine gluconate 15 mL to swish and spit 4 times a day. 8. Clotrimazole cream applied to the intertriginous areas b.i.d. as needed for redness. 9. Lexapro 20 mg daily. 10. Furosemide 20 mg every 48 hours. 11. Hydralazine 25 mg t.i.d. 12. Keppra 500 mg b.i.d. 13. Lisinopril 20 mg b.i.d. 14. Trileptal (oxcarbazepine) 600 mg at bedtime. 15. Trileptal (oxcarbazepine) 300 mg in the morning. 16. Oxybutynin 5 mg b.i.d. 17. MiraLAX 17 g 8 ounces of water daily as needed. 18. [place] Thyroid 180 mg daily. 19. Tramadol 50 mg every 6 hours as needed. These medicines can be crushed and given with pudding orally. FOLLOWUP: The patient will be seen in a week unless there is an interval problem. Labs on Sunday 06/03, please order a CMP, lipid, and CBC. CODE STATUS: Full code. Job ID: [id number] MTDD
== END 2018-05-31 14:00 | DRG 948 ==
LOC: MADMS 22:08
PROVIDERS: ADMIT Family Medicine; ATTEND Family Medicine
DX: R53.1 Weakness (principal); I69.354 Hemiplegia and hemiparesis following cerebral infarction affecting left non-dominant side; I50.30 Unspecified diastolic (congestive) heart failure; B37.49 Other urogenital candidiasis; I08.2 Rheumatic disorders of both aortic and tricuspid valves; I11.0 Hypertensive heart disease with heart failure; E78.5 Hyperlipidemia, unspecified; F31.9 Bipolar disorder, unspecified; E03.9 Hypothyroidism, unspecified; I69.392 Facial weakness following cerebral infarction; B37.2 Candidiasis of skin and nail; I69.391 Dysphagia following cerebral infarction; R13.10 Dysphagia, unspecified; Z95.828 Presence of other vascular implants and grafts; Z93.1 Gastrostomy status; Z74.01 Bed confinement status; Z79.01 Long term (current) use of anticoagulants; Z98.890 Other specified postprocedural states; Z86.718 Personal history of other venous thrombosis and embolism; Z90.49 Acquired absence of other specified parts of digestive tract; Z90.710 Acquired absence of both cervix and uterus; Z95.0 Presence of cardiac pacemaker; Z88.1 Allergy status to other antibiotic agents; Z88.5 Allergy status to narcotic agent; Z88.8 Allergy status to other drugs, medicaments and biological substances; Z91.013 Allergy to seafood; Z79.899 Other long term (current) drug therapy
CPT/HCPCS: 36415; 80053; 85025; 90471; 90662; G0008; G8981-GP-CN; G8982-GP-CM; G8987-GO-CM; G8988-GO-CJ; G8996-GN-CL; G8997-GN-CL; J7611

== ENCOUNTER 2018-07-06 21:27 | Emergency (ER) | payer MEDICARE ==
[~2018-07-06 21:27] MED LIST: Iopamidol 370 76% 100 ML VIAL ONE
[2018-07-06 22:03] LABS: #Eosinphils 0.3 thou/uL (0.0-0.7); #Lymphocytes 0.9 thou/uL (1.20-3.40); #Monocytes 0.5 thou/uL (0.11-0.59); #Neutrophils 6.6 thou/uL (1.40-6.50); %Basophils 0.4 % (0.0-1.0); %Eosinophils 3.8 % (0.0-10.0); %Lymphocytes 10.5 % (21.0-51.0); %Monocytes 6.3 % (0.0-10.0); %Neutrophils 79.1 % (42.0-75.0); Hemoglobin 9.8 g/dL (12.0-16.0); Mean Corpuscular HGB CONC 33.1 g/dL (32.0-36.0); Mean Corpuscular Hemoglobin 29.2 pg (27.0-31.0); Mean Corpuscular Volume 88.2 fL (78.0-98.0); Mean Platelet Volume 6.4 fL (7.4-10.4); Platelet Count 277 thou/uL (130-400); RBC Distribution Width 14.9 % (11.5-14.5); Red Blood Cell (RBC) Count 3.35 mill/uL (4.20-5.40); White Blood Cell (WBC) Count 8.4 thou/uL (4.8-10.8)
[2018-07-06 22:19] LABS: ALT (SGPT) 20 U/L (8-55); AST (SGOT) 17 U/L (5-34); Albumin 3.2 g/dL (3.4-4.8); Alkaline Phosphatase 85 U/L (40-150); Anion Gap 10 mmol/L (10-20); BUN (Urea Nitrogen) 12 mg/dL (9.8-20.1); Bilirubin, Total 0.4 mg/dL (0.2-1.2); Calc. Creatinine Clearance 0 mL/min (70-130); Calcium 10.1 mg/dL (7.8-10.44); Carbon Dioxide 32 mmol/L (23-31); Chloride 93 mmol/L (98-107); Estimated GFR-MDRD Greater than 90; Globulin 3.1 g/dL (2.4-3.5); Glucose 100 mg/dL (83-110); Potassium 4.3 mmol/L (3.5-5.1); Protein, Total 6.3 g/dL (6.0-8.3); Sodium 131 mmol/L (136-145)
--- NOTE | 2018-07-06 23:45 | CT ---
ABDOMEN AND PELVIC CT SCAN WITH IV CONTRAST: 07/06/18 HISTORY: Abdominal pain. COMPARISON: 02/20/13 FINDINGS: Small bilateral pleural effusions and minimal pleural based parenchymal changes. Cardiomegaly. Status post cholecystectomy with some borderline ductal dilatation. The pancreas demonstrates an approximat oma 1.1 x 2 cm diameter cystic mass within the pancreas which may have been present on the prior stud y but was not as well visualized. It may be slightly larger in size. The spleen appears unremarkable. There is some minimal bilateral adrenal enlargement and nodularity, stable. Nonobstructing left lowe r pole renal calculus. Left renal cyst. There is a percutaneous tube noted in the left anterior abdom en which extends only into the abdominal wall. If this is a gastrostomy tube, it does not appear to e xtend into the stomach. IVC filter in place. No CT evidence for acute appendicitis. Colonic diverticu losis without acute diverticulitis. No evidence for other significant acute process in the abdomen or pelvis. IMPRESSION: Presumed gastrostomy tube in the anterior left upper abdomen only extends into the anterior abdominal wall and does not extend into the stomach. Small bilateral pleural effusions with minimal pleural ba sed parenchymal changes. Cardiomegaly. Small hiatal hernia. Status post cholecystectomy. Nonobstructi ng left renal calculus but no evidence for acute obstruction. Colonic diverticulosis without diver ticulitis. Moderate solid fecal material in a minimally dilated rectum. Other findings as above. POS: RADHA
== END 2018-07-07 01:10 | disposition short-term general hospital (02) ==
LOC: MADERS 21:27
DX: K94.23 Gastrostomy malfunction (principal); R13.10 Dysphagia, unspecified; I11.0 Hypertensive heart disease with heart failure; I50.9 Heart failure, unspecified; J44.9 Chronic obstructive pulmonary disease, unspecified; E03.9 Hypothyroidism, unspecified; F31.9 Bipolar disorder, unspecified; I48.91 Unspecified atrial fibrillation; Z79.899 Other long term (current) drug therapy; Z86.73 Personal history of transient ischemic attack (TIA), and cerebral infarction without residual deficits; Z79.01 Long term (current) use of anticoagulants
CPT/HCPCS: 36415; 74177; 80053; 85025

== ENCOUNTER 2018-11-09 22:26 | Outpatient (CLI) | payer MEDICARE ==
[2018-11-09 22:37] LABS: Bilirubin Negative (Negative); Blood, Urine Trace (Negative); Clarity Slightly Cloudy (Clear); Glucose, Urine (Dipstick) Negative (Negative); Leukocyte Large (Negative); Nitrite Positive (Negative); Protein, Urine (Dipstick) 30 mg/dL (Neg-Trace); Specific Gravity, Urine 1.015 (1.005-1.030); Urobilinogen 0.2 mg/dL (0.2-1.0); pH, Urine 5.5 (5.0-9.0)
[2018-11-09 22:39] LABS: Bacteria/HPF 4+ HPF (None Seen); Hyaline Casts/LPF 4-6 HYALINE CAST LPF (0-3 Hyaline); WBC/HPF 21-50 HPF (0-3); Yeast-All Forms Rare HPF (None Seen)
== END 2018-11-09 22:27 | disposition home or self-care (01) ==
LOC: MADLAB 22:26
PROVIDERS: ATTEND Family Medicine
DX: M54.9 Dorsalgia, unspecified (principal); R41.89 Other symptoms and signs involving cognitive functions and awareness
CPT/HCPCS: 81001; 87077; 87086; 87186

== ENCOUNTER 2018-12-03 13:07 | Inpatient (IN) | payer MEDICARE ==
[2018-12-03] MEDS ORDERED: Bisacodyl 10 MG SUPP PR PRN (18:39)
[2018-12-03] MEDS ORDERED: Ondansetron ODT 4 MG TAB SL PRN (18:41)
[2018-12-03] MEDS ORDERED: Loratadine 10 MG TAB PO PRN (18:41)
[2018-12-03] MEDS ORDERED: traMADol HCl 50 MG TAB PO PRN (18:41)
[2018-12-03] MEDS ORDERED: Polyethylene Glycol 3350 17 GM Packet PO PRN (18:41)
[2018-12-03] MEDS: Lisinopril 10 MG TAB PO SCH (20:39)
[2018-12-03] MEDS: levETIRAcetam 500 MG TAB PO SCH (20:39)
[2018-12-03] MEDS: Oxybutynin 5 MG TAB PO SCH (20:39)
[2018-12-03] MEDS: Escitalopram Oxalate 10 mg Tablet PO SCH (20:39)
[2018-12-03] MEDS: Furosemide 40 MG TAB PO SCH (20:39)
[2018-12-03] MEDS: Atorvastatin Calcium 10 MG TAB PO SCH (20:40)
[2018-12-03] MEDS: OXcarbazepine 150 MG TAB PO SCH (20:41)
[2018-12-03] MEDS: Potassium Chloride 10 MEQ TAB PO SCH (20:41)
[2018-12-03] MEDS: Carvedilol 6.25 MG TAB PO SCH (20:41)
[2018-12-03] MEDS: hydrALAZINE 25 MG TAB PO SCH (20:42)
[2018-12-03] MEDS: Cefepime 2 GM in Sodium Chloride 0.9% 100 ML IVPB SCH (20:42)
[2018-12-03] MEDS: Chlorhexidine Gluconate 15 ML UDCUP SSP SCH (20:53)
[2018-12-03] MEDS: Acetaminophen 325 MG TAB PO PRN (20:53)
[2018-12-03] MEDS ORDERED: Cefepime 2 GM VIAL IVPB SCH (21:00)
[2018-12-04 05:17] LABS: #Basophils 0.1 thou/uL (0.0-0.2); #Eosinphils 0.3 thou/uL (0.0-0.7); #Lymphocytes 0.6 thou/uL (1.20-3.40); #Monocytes 0.6 thou/uL (0.11-0.59); #Neutrophils 3.6 thou/uL (1.40-6.50); %Basophils 2.5 % (0.0-1.0); %Eosinophils 6.5 % (0.0-10.0); %Lymphocytes 11.4 % (21.0-51.0); %Monocytes 10.6 % (0.0-10.0); %Neutrophils 69.1 % (42.0-75.0); Hemoglobin 8.5 g/dL (12.0-16.0); Mean Corpuscular HGB CONC 32.7 g/dL (32.0-36.0); Mean Corpuscular Hemoglobin 27.5 pg (27.0-31.0); Mean Corpuscular Volume 84.1 fL (78.0-98.0); Mean Platelet Volume 7.4 fL (7.4-10.4); Platelet Count 191 thou/uL (130-400); RBC Distribution Width 14.1 % (11.5-14.5); Red Blood Cell (RBC) Count 3.09 mill/uL (4.20-5.40); White Blood Cell (WBC) Count 5.2 thou/uL (4.8-10.8)
[2018-12-04 05:32] LABS: ALT (SGPT) 24 U/L (8-55); AST (SGOT) 16 U/L (5-34); Albumin 2.8 g/dL (3.4-4.8); Alkaline Phosphatase 101 U/L (40-150); Anion Gap 13 mmol/L (10-20); BUN (Urea Nitrogen) 13 mg/dL (9.8-20.1); Bilirubin, Total 0.4 mg/dL (0.2-1.2); Calc. Creatinine Clearance 132 mL/min (70-130); Calcium 9.4 mg/dL (7.8-10.44); Carbon Dioxide 34 mmol/L (23-31); Chloride 95 mmol/L (98-107); Estimated GFR-MDRD Greater than 90; Globulin 3.3 g/dL (2.4-3.5); Glucose 96 mg/dL (83-110); Potassium 3.6 mmol/L (3.5-5.1); Protein, Total 6.1 g/dL (6.0-8.3); Sodium 138 mmol/L (136-145)
--- NOTE | 2018-12-04 08:22 | HP ---
CHIEF COMPLAINT: Requires IV antibiotics. HISTORY OF PRESENT ILLNESS: The patient is a 73-year-old white female, who has a history of a hemorrhagic stroke involving the right basal ganglia that occurred on 02/28/2018. This has left her with a dense left hemiparalysis, neurogenic bladder and initially some dysphagia requiring enteral feedings through a G-tube. She has progressed to where she is tolerating a mechanical soft diet and just receives tube feedings at night. She also has a history of diastolic dysfunction, venous insufficiency, hypertension, DVT of the left leg, which she has an IVC and atrial fibrillation, for which she has undergone multiple ablations and cardioversions. She also has hypothyroidism and history of a bipolar disorder. The [facility] and had recently been treated for urinary tract infection for Klebsiella pneumoniae that was sensitive to Cipro for which she received this. She completed this 5 days prior to her admission. The patient requires an indwelling catheter due to the urinary retention from the neurogenic bladder. The patient resides in the [facility] where she requires assistance with all her ADLs. The patient gradually became less responsive and developed fever for which she was referred to the hospital. She was hospitalized at [facility] from 11/28/2018 until 12/03/2018 with a urosepsis with right-sided hydronephrosis. Her urine grow Proteus mirabilis sensitive to the cefepime. She had one of 2 blood cultures positive for the Proteus, also sensitive to cefepime. She was seen in consultation by urologist, Dr. Aurelio Og. On the evening of 11/28/2018, she was taken to surgery and cystoscopy was performed. No mucosal abnormality was found. She had inflammatory changes throughout the bladder from the Araujo. Her CT scan had shown hydroureteronephrosis down to the level of the bladder. A stent was placed in the right ureter with intentions to leave this for the 2 weeks. Culture was taken from the drainage from the renal pelvis that grew Pseudomonas aeruginosa, but colony count was less than 10,000. The patient presented with an encephalopathy from the sepsis and also thrombocytopenia. She gradually improved with resolution of the encephalopathy and resolution of the fever. She was seen in consult by Dr. Franco, infectious Disease, who recommended for the urosepsis that she remain on the cefepime 2 g every 12 hours IV until December 14, 2018. She is due to see Dr. Og in followup 2 weeks after the placement of the right ureteral stent, which would be on 12/12/2018. During her hospitalization, she was not receiving her nighttime G-tube feedings and occasionally would receive a can of Glucerna. Her said this kind of filled her up and bloated her. He said she essentially has not had any G-tube feeding for a week. She has been doing well on her eating. The patient was transferred to [facility] for continuation of the IV antibiotics. The patient was seen afternoon for admission. Her was in the room and was able to give a good history of what had happened. PAST MEDICAL HISTORY: Hospitalized at [facility] from 11/28 until for urosepsis with Proteus mirabilis, complicated by a right hydroureteronephrosis for which she had a stent placed in the right ureter on November 28, [address] Aurelio Og, this to be removed in 2 weeks. She presented with an acute encephalopathy and fever, both of which have resolved. The patient had a right basal ganglia, hemorrhagic CVA on 02/28/2018 that left her with a dense left hemiparalysis, neurogenic bladder, dysphagia, requiring G-tube placement, requiring chronic indwelling Araujo catheter. She was placed on Keppra for seizure prophylaxis and she has been receiving nighttime enteral feedings with Jevity 1.5 at 55 mL/hour and water at 35 mL/hour from 6 p.m. to 5 a.m. with water flush of 60 mL before and after feeding. She has been doing very well with her mechanical soft diet. The patient also had a history of diastolic congestive heart failure. No recent acute episodes. She has venous insufficiency of the lower extremity that has been controlled with elevation. She has a history of a DVT in the left lower leg on 02/23/2018, for which she had an IVC filter placed. She has a history of atrial fibrillation for which she has undergone multiple ablations and cardioversion. She is a poor candidate for anticoagulant due to her history of the hemorrhagic stroke. She has bipolar disorder that is controlled, hypothyroidism, asthma, hypercholesterolemia. She has a pacemaker that was placed in June of 2017, for bradycardia. She has had a colonoscopy with polyps removed in 2006. She had a right thyroid lobectomy in 2003. She has had a vaginal hysterectomy in 1987, right breast biopsy, benign 1987, cholecystectomy, appendectomy, PEG tube placement 03/06/2018, tracheostomy 03/06/2018 that was later able to stopped. PRESENT MEDICATIONS: 1. Albuterol or DuoNebs every 4 hours as needed. 2. Zofran 4 mg sublingual every 6 hours p.r.n. 3. Tramadol 50 mg one every 6 hours as needed. 4. Tylenol 650 mg every 4 hours p.r.n. 5. Vitamin C 500 mg daily. 6. Atorvastatin 5 mg at bedtime. 7. Dulcolax suppository 10 mg per rectum daily p.r.n. 8. Coreg 6.25 mg per b.i.d. 9. Chlorhexidine mouthwash b.i.d. 10. Lexapro 20 mg at bedtime. 11. Pepcid 20 mg daily. 12. Lasix 40 mg b.i.d. 13. Keppra 500 mg b.i.d. 14. Lisinopril 20 mg b.i.d. 15. Claritin 10 mg daily as needed. 16. Trileptal 300 mg in the morning and 600 mg in the evening. 17. Oxybutynin 5 mg b.i.d. 18. MiraLAX 17 g in 8 ounces of water daily. 19. K-Dur 10 mEq daily. 20. [place] Thyroid 180 mg daily. 21. Hydralazine 25 mg t.i.d. ALLERGIES: PENICILLIN, LODINE, CAUSES EDEMA. CODEINE, PROPAFENONE CAUSES ORTHOSTATIC HYPOTENSION. REVIEW OF SYSTEMS: GENERAL: The patient says she does not think she has had any recent fever. thinks she has lost just a little weight since her hospitalization. HEAD AND NECK: No complaints. PULMONARY: No shortness of breath. CARDIOVASCULAR: No chest pain. GI: No nausea or vomiting. Bowels are moving well. The patient has been eating mechanical soft diet well. She has essentially not been receiving any G-tube feeding for a weeks since her hospitalization. : The patient has indwelling Araujo catheter with a right ureteral stent placed on 11/28/2018 and due to be removed on 12/12/2018. NEUROPSYCHIATRIC: The patient's bipolar disorder has been well controlled and she has dense left hemiparalysis and requires total care. She has been up, sitting on the bedside at the [facility] during her recent hospitalization. HABITS: Alcohol, none. Tobacco, none. SOCIAL HISTORY: The patient is . Her is very attentive to her care. The patient had been living at [facility] prior to her hospitalization and upon discharge will return there. CODE STATUS: Full code. PHYSICAL EXAMINATION: GENERAL: Shows a 73-year-old white female, who is lying in bed with head elevated, eating some supper. She is alert, talkative, answers questions appropriately and knew me. She does not appear in any distress. VITAL SIGNS: Shows a temperature of 97.6, pulse 61, respirations of 18, O2 saturation 100 on 3 L, blood pressure 144/64, her weight is 199. HEAD: Normocephalic and atraumatic. Ears, TMs are clear. Eyes; pupils were equal, round, and reactive. Sclerae nonicteric. Nose normal. Mouth and throat normal. NECK: Carotids are equal and strong. No bruits. Thyroid not enlarged. LUNGS: Clear. HEART: Regular rate. No murmurs. ABDOMEN: Soft, no organomegaly nor areas of tenderness. G-tube is located in the left upper abdomen. The G-tube site is clean. There is no drainage. No surrounding redness. Abdomen is soft with no organomegaly and no areas of tenderness. The patient has an indwelling Araujo catheter. EXTREMITIES: There is no edema. NEUROLOGIC: The patient is alert and knew she is in [place], recognizes me and knows her family. She has a dense left hemiparalysis. IMPRESSION: 1. Urosepsis. a. Presented with fever, acute encephalopathy. b. Urine and blood cultures, both positive for Proteus mirabilis, sensitive to cefepime. c. Complicated by a right hydroureteronephrosis requiring cystoscopy and placement of a right ureteral stent on 11/28/2018 by urologist, Dr. Aurelio Og and to be removed around 12/12/2018. d. Marked improvement. e. Transferred to [facility] on 12/03/2018 for continuation of the IV cefepime until 12/14/2018. 2. History of a right basal ganglia hemorrhagic stroke on 02/28/2018 complicated by: a. Neurogenic bladder with retention requiring chronic indwelling Araujo catheter. b. Dense left hemiparalysis. c. Dysphagia that initially required enteral feeding that had been progressed only nighttime and now has not received any feeding for a week, tolerating a mechanical soft diet as of 12/03/2018. 3. Diastolic dysfunction. a. No evidence of acute congestive heart failure. 4. History of atrial fibrillation. a. Status post multiple ablations and cardioversion. b. Status post pacemaker insertion. c. Remains in a regular rhythm with rate controlled. 5. Bipolar disorder. a. Controlled. 6. Hypothyroidism. 7. Asthma. 8. Constipation. 9. History of deep venous thrombosis of the left lower leg, requiring inferior vena cava placement on 03/15/2018. 10. Constipation, controlled. PLAN: The patient had been admitted to [facility] for completion of a 2 week course of cefepime, 2 g IV every 12 hours. There is a PICC line in the right arm that was placed on 12/02/2018 without problems. The patient should complete the cefepime on 12/14/2018. The patient will need to be seen by Dr. Aurelio Og for removal of the stent 2 weeks from placement, which will be around 12/12. I will arrange for this prior to her completion of the IV antibiotics 2 weeks from the time of placement of the stent, it will be on 12/12/2018. The patient has been doing good with her eating. She really has not had any feedings through the G-tube over the last week. We will see how she does on a mechanical soft diet. Code status full. The patient has an IVC filter. See orders. Job ID: [id number] MTDD
[2018-12-04] MEDS ORDERED: Thyroid 30 MG TAB PO SCH (09:00)
[2018-12-04] MEDS: Potassium Chloride 10 MEQ TAB PO SCH ×2 (09:00→22:08)
[2018-12-04] MEDS: Cefepime 2 GM in Sodium Chloride 0.9% 100 ML IVPB SCH ×2 (09:00→21:48)
[2018-12-04] MEDS: Furosemide 40 MG TAB PO SCH ×2 (09:01→22:00)
[2018-12-04] MEDS: Saccharomyces boulardii 250 MG CAP PO SCH (09:01)
[2018-12-04] MEDS: levETIRAcetam 500 MG TAB PO SCH ×2 (09:01→22:02)
[2018-12-04] MEDS: Oxybutynin 5 MG TAB PO SCH ×2 (09:01→22:07)
[2018-12-04] MEDS: Lisinopril 10 MG TAB PO SCH ×2 (09:01→22:02)
[2018-12-04] MEDS: hydrALAZINE 25 MG TAB PO SCH ×3 (09:01→22:00)
[2018-12-04] MEDS: Ascorbic Acid 500 mg Chewable Tablet PO SCH (09:01)
[2018-12-04] MEDS: OXcarbazepine 150 MG TAB PO SCH ×2 (09:01→22:04)
[2018-12-04] MEDS: Carvedilol 6.25 MG TAB PO SCH ×2 (09:01→21:57)
[2018-12-04] MEDS: Chlorhexidine Gluconate 15 ML UDCUP SSP SCH ×2 (09:02→22:10)
--- NOTE | 2018-12-04 10:16 | PRG ---
DATE OF SERVICE: 12/04/2018 SUBJECTIVE: The patient said she is feeling good this morning. She had no complaint. Right now, her G-tube feedings were on hold since she had not received any of these during her [address] [facility] and would let her try on oral feedings or mechanical soft diet. May have to supplement some with some enteral feeding. I have asked dietary and also Speech Therapy to look on further suggestions. OBJECTIVE: GENERAL: The patient is alert, appears comfortable, and in no distress. VITAL SIGNS: Show a temperature 97.2, pulse 62, respirations 18, O2 saturation 95% on room air, blood pressure 144/65. LUNGS: Clear. HEART: Regular rate. LABORATORY DATA: Her lab shows an H and H of 8.5 and 26, white cell count 5200 with 69% segs, 11% lymphocytes, and platelet count of 191,000. Sodium 138, potassium 3.6, BUN 13, creatinine 0.54, albumin 2.8. ASSESSMENT: 1. Urosepsis. a. Presenting with encephalopathy and fever. b. Required hospitalization at [facility] from 11/28 to 12/03/2018. c. One blood culture and urine culture positive for Proteus mirabilis sensitive to cefepime. d. Complicated by right hydroureteronephrosis requiring stent placement on 11/28/2018. e. On 2 week course of cefepime. f. Presently afebrile and asymptomatic as of 12/04/2018. 2. Late effect of a right basal ganglia hemorrhagic stroke leaving her with a dense left hemiparalysis. a. Neurogenic bladder with urinary retention requiring indwelling Araujo catheter. b. Dysphagia is marked that initially required enteral feeding through G- tube. Now doing well on oral feedings and trying to transition to oral feedings alone. 3. Hypothyroidism. 4. History of atrial fibrillation. a. Status post multiple ablations and electrocardioversion. b. Remains in sinus rhythm with rate controlled. c. Status post pacemaker placement for bradycardia. 5. Hypertension, controlled. 6. Bipolar disorder. a. Controlled. PLAN: Continue present care. The patient due to see her urologist, Dr. Aurelio Og, for removal of the stent 2 weeks post placement. Speech Therapy to see the patient and dietary consult also has been ordered. Job ID: [id number] [facility]
[2018-12-04] MEDS: Acetaminophen 325 MG TAB PO PRN ×2 (16:48→22:09)
[2018-12-04] MEDS: Atorvastatin Calcium 10 MG TAB PO SCH (21:56)
[2018-12-04] MEDS: Escitalopram Oxalate 10 mg Tablet PO SCH (21:58)
[2018-12-05] MEDS: Thyroid 30 MG TAB PO SCH (05:33)
[2018-12-05] MEDS: Cefepime 2 GM in Sodium Chloride 0.9% 100 ML IVPB SCH ×2 (08:19→20:45)
[2018-12-05] MEDS: levETIRAcetam 500 MG TAB PO SCH ×2 (08:20→20:46)
[2018-12-05] MEDS: Saccharomyces boulardii 250 MG CAP PO SCH (08:20)
[2018-12-05] MEDS: hydrALAZINE 25 MG TAB PO SCH ×3 (08:20→20:50)
[2018-12-05] MEDS: Potassium Chloride 10 MEQ TAB PO SCH ×2 (08:20→20:47)
[2018-12-05] MEDS: OXcarbazepine 150 MG TAB PO SCH ×2 (08:20→20:51)
[2018-12-05] MEDS: Carvedilol 6.25 MG TAB PO SCH ×2 (08:20→20:50)
[2018-12-05] MEDS: Ascorbic Acid 500 mg Chewable Tablet PO SCH (08:20)
[2018-12-05] MEDS: Lisinopril 10 MG TAB PO SCH ×2 (08:21→20:46)
[2018-12-05] MEDS: Furosemide 40 MG TAB PO SCH ×2 (08:22→20:47)
[2018-12-05] MEDS: Chlorhexidine Gluconate 15 ML UDCUP SSP SCH ×2 (08:22→21:02)
[2018-12-05] MEDS: Oxybutynin 5 MG TAB PO SCH (08:22)
[2018-12-05] MEDS: Acetaminophen 325 MG TAB PO PRN ×2 (08:28→19:51)
[2018-12-05] MEDS: Multivitamin W/ Minerals 1 TAB PO SCH (08:54)
--- NOTE | 2018-12-05 12:10 | PRG ---
DATE OF SERVICE: 12/05/2018 SUBJECTIVE: The patient is feeling good. She has no complaints. had asked if she still needs the Ditropan. She is not having any bladder spasm, think this could be stopped and reutilized if necessary. Dietitian saw patient and has recommended the patient be started on a multivitamin. Also, she recommended a number of supplements and flushing the G-tube with 240 mL of water twice today. These recommendations will be followed and then she will reassess her in a week. She will receive bedtime snacks with Ensure Enlive, Ensure Pudding to help bolster her intake, also to be given 4 to 5 cereals with breakfast and offer Ensure Enlive if she takes in less than 50% of her meal. OBJECTIVE: GENERAL: The patient is sitting up in her bed, preparing for breakfast. She is alert, talkative, appears very comfortable, in no distress. VITAL SIGNS: Her temp is 97.6, pulse 81, respirations 16, O2 saturation 94% on room air, blood pressure 147/65. LUNGS: Clear. HEART: Regular rate. EXTREMITIES: No edema. IMPRESSION: 1. Urosepsis. a. Presented with fever, acute encephalopathy. b. Urine and blood cultures, both positive for Proteus mirabilis, sensitive to cefepime. c. Complicated by a right hydroureteronephrosis requiring cystoscopy and placement of a right ureteral stent on 11/28/2018 by urologist, Dr. Aurelio Og and to be removed around 12/12/2018. d. Marked improvement. e. Transferred to [facility] on 12/03/2018 for continuation of the IV cefepime until 12/14/2018. f. Doing well on IV meropenem as of 12/05/2018 due to have the ureteral stent removed by her urologist, Dr. Og on 12/11/2018. 2. History of a right basal ganglia hemorrhagic stroke on 02/28/2018 complicated by: a. Neurogenic bladder with retention requiring chronic indwelling Araujo catheter. b. Dense left hemiparalysis. c. Dysphagia that initially required enteral feeding that had been progressed only nighttime and now has not received any feeding for a week, tolerating a mechanical soft diet as of 12/03/2018. 3. Diastolic dysfunction. a. No evidence of acute congestive heart failure. 4. History of atrial fibrillation. a. Status post multiple ablations and cardioversion. b. Status post pacemaker insertion. c. Remains in a regular rhythm with rate controlled. 5. Bipolar disorder. a. Controlled. 6. Hypothyroidism. 7. Asthma. 8. Constipation. 9. History of deep venous thrombosis of the left lower leg, requiring inferior vena cava placement on 03/15/2018. 10. Constipation, controlled. PLAN: Continue present care. We will follow recommendations from dietitian. We will flush the G-tube being with 240 mL water twice today. We will start the patient on multivitamin. We will stop her Ditropan. Job ID: [id number] MTDD
[2018-12-05] MEDS: Famotidine 20 MG TAB PO PRN (19:52)
[2018-12-05] MEDS: Escitalopram Oxalate 10 mg Tablet PO SCH (20:48)
[2018-12-05] MEDS: Atorvastatin Calcium 10 MG TAB PO SCH (20:49)
[2018-12-06] MEDS: Thyroid 30 MG TAB PO SCH (06:55)
[2018-12-06] MEDS: Chlorhexidine Gluconate 15 ML UDCUP SSP SCH ×2 (08:30→21:39)
[2018-12-06] MEDS: Cefepime 2 GM in Sodium Chloride 0.9% 100 ML IVPB SCH ×2 (08:30→21:40)
[2018-12-06] MEDS: Saccharomyces boulardii 250 MG CAP PO SCH (08:31)
[2018-12-06] MEDS: levETIRAcetam 500 MG TAB PO SCH ×2 (08:31→21:37)
[2018-12-06] MEDS: Furosemide 40 MG TAB PO SCH ×2 (08:31→21:37)
[2018-12-06] MEDS: Potassium Chloride 10 MEQ TAB PO SCH ×2 (08:31→21:36)
[2018-12-06] MEDS: Carvedilol 6.25 MG TAB PO SCH ×2 (08:32→21:37)
[2018-12-06] MEDS: Multivitamin W/ Minerals 1 TAB PO SCH (08:32)
[2018-12-06] MEDS: hydrALAZINE 25 MG TAB PO SCH ×3 (08:32→21:38)
[2018-12-06] MEDS: Ascorbic Acid 500 mg Chewable Tablet PO SCH (08:32)
[2018-12-06] MEDS: Lisinopril 10 MG TAB PO SCH ×2 (08:33→21:31)
[2018-12-06] MEDS: OXcarbazepine 150 MG TAB PO SCH ×2 (08:34→21:32)
--- NOTE | 2018-12-06 09:03 | PRG ---
DATE OF SERVICE: 12/06/2018 SUBJECTIVE: The patient has no complaint. She is doing good with her oral nutritional and fluid intake. Physical Therapy is working with her. This morning, they have her up in a Ame chair and working with her. She has her orthotic on her left hand and forearm. She had no complaint. OBJECTIVE: GENERAL: The patient is alert, appears comfortable, in no distress. VITAL SIGNS: Temperature 97.2, pulse 60, respirations 18, O2 saturation 96%, blood pressure 148/66. LUNGS: Clear. HEART: Regular rate. NEUROLOGIC: The patient has a dense left hemiparalysis. She has contractures of the fingers and wrists for which she wears an orthotic. ASSESSMENT: 1. Urosepsis. a. Presented with fever, acute encephalopathy. b. Urine and blood cultures, both positive for Proteus mirabilis, sensitive to cefepime. c. Complicated by a right hydroureteronephrosis requiring cystoscopy and placement of a right ureteral stent on 11/28/2018 by urologist, Dr. Aurelio Og and to be removed around 12/12/2018. d. Marked improvement. e. Transferred to [facility] on 12/03/2018 for continuation of the IV cefepime until 12/14/2018. f. Doing well on IV meropenem as of 12/06/2018. Due to continue the IV antibiotics until 12/14/2018. Due to have the right ureteral stent removed by her urologist, Dr. Og on 12/11/2018. 2. History of a right basal ganglia hemorrhagic stroke on 02/28/2018 complicated by: a. Neurogenic bladder with retention requiring chronic indwelling Araujo catheter. b. Dense left hemiparalysis. c. Dysphagia that initially required enteral feeding that had been progressed only nighttime and now has not received any feeding for a week, tolerating a mechanical soft diet as of 12/03/2018. 1. Doing well with oral feeding as of 12/06/2018. 3. Diastolic dysfunction. a. No evidence of acute congestive heart failure. 4. History of atrial fibrillation. a. Status post multiple ablations and cardioversion. b. Status post pacemaker insertion. c. Remains in a regular rhythm with rate controlled. 5. Bipolar disorder. a. Controlled. 6. Hypothyroidism. 7. Asthma. 8. Constipation. 9. History of deep venous thrombosis of the left lower leg, requiring inferior vena cava placement on 03/15/2018. 10. Constipation, controlled. PLAN: Continue IV antibiotics. She is due to continue these until the 14 of December. She is due to see Dr. Og, her urologist for removal of the stent on the and she is due to see her Infectious Disease physician, Dr. Franco on . Job ID: [id number] MTDD
[2018-12-06] MEDS: Acetaminophen 325 MG TAB PO PRN ×2 (13:07→19:06)
[2018-12-06] MEDS: Escitalopram Oxalate 10 mg Tablet PO SCH (21:36)
[2018-12-06] MEDS: Atorvastatin Calcium 10 MG TAB PO SCH (21:50)
[2018-12-07] MEDS: Thyroid 30 MG TAB PO SCH (06:02)
[2018-12-07] MEDS: Cefepime 2 GM in Sodium Chloride 0.9% 100 ML IVPB SCH ×2 (08:29→20:41)
[2018-12-07] MEDS: Saccharomyces boulardii 250 MG CAP PO SCH (08:35)
[2018-12-07] MEDS: Potassium Chloride 10 MEQ TAB PO SCH ×2 (08:35→20:43)
[2018-12-07] MEDS: Furosemide 40 MG TAB PO SCH ×2 (08:35→20:43)
[2018-12-07] MEDS: Lisinopril 10 MG TAB PO SCH ×2 (08:35→20:42)
[2018-12-07] MEDS: Carvedilol 6.25 MG TAB PO SCH ×2 (08:35→20:41)
[2018-12-07] MEDS: Multivitamin W/ Minerals 1 TAB PO SCH (08:36)
[2018-12-07] MEDS: OXcarbazepine 150 MG TAB PO SCH ×2 (08:36→20:43)
[2018-12-07] MEDS: Ascorbic Acid 500 mg Chewable Tablet PO SCH (08:36)
[2018-12-07] MEDS: levETIRAcetam 500 MG TAB PO SCH ×2 (08:36→20:43)
[2018-12-07] MEDS: hydrALAZINE 25 MG TAB PO SCH ×3 (08:38→20:42)
[2018-12-07] MEDS: Chlorhexidine Gluconate 15 ML UDCUP SSP SCH ×2 (08:39→20:41)
[2018-12-07] MEDS: Acetaminophen 325 MG TAB PO PRN ×2 (12:04→20:44)
[2018-12-07] MEDS: Atorvastatin Calcium 10 MG TAB PO SCH (20:40)
[2018-12-07] MEDS: Escitalopram Oxalate 10 mg Tablet PO SCH (20:42)
[2018-12-07] MEDS: Famotidine 20 MG TAB PO PRN (20:43)
[2018-12-08] MEDS: Thyroid 30 MG TAB PO SCH (06:18)
[2018-12-08] MEDS: Ascorbic Acid 500 mg Chewable Tablet PO SCH (09:22)
[2018-12-08] MEDS: Cefepime 2 GM in Sodium Chloride 0.9% 100 ML IVPB SCH ×2 (09:22→21:41)
[2018-12-08] MEDS: Carvedilol 6.25 MG TAB PO SCH ×2 (09:22→21:35)
[2018-12-08] MEDS: Chlorhexidine Gluconate 15 ML UDCUP SSP SCH ×2 (09:23→21:40)
[2018-12-08] MEDS: Furosemide 40 MG TAB PO SCH ×2 (09:23→21:35)
[2018-12-08] MEDS: Multivitamin W/ Minerals 1 TAB PO SCH (09:23)
[2018-12-08] MEDS: Potassium Chloride 10 MEQ TAB PO SCH ×2 (09:23→21:32)
[2018-12-08] MEDS: levETIRAcetam 500 MG TAB PO SCH ×2 (09:23→21:32)
[2018-12-08] MEDS: OXcarbazepine 150 MG TAB PO SCH ×2 (09:23→21:38)
[2018-12-08] MEDS: hydrALAZINE 25 MG TAB PO SCH ×3 (09:24→21:33)
[2018-12-08] MEDS: Lisinopril 10 MG TAB PO SCH ×2 (09:24→21:36)
[2018-12-08] MEDS: Saccharomyces boulardii 250 MG CAP PO SCH (09:24)
[2018-12-08] MEDS: Acetaminophen 325 MG TAB PO PRN ×2 (17:08→21:53)
[2018-12-08] MEDS: Atorvastatin Calcium 10 MG TAB PO SCH (21:05)
[2018-12-08] MEDS: Escitalopram Oxalate 10 mg Tablet PO SCH (21:34)
[2018-12-08] MEDS: Famotidine 20 MG TAB PO PRN (21:53)
[2018-12-09] MEDS: Thyroid 30 MG TAB PO SCH (06:00)
[2018-12-09] MEDS: Cefepime 2 GM in Sodium Chloride 0.9% 100 ML IVPB SCH ×2 (08:54→20:51)
[2018-12-09] MEDS: Chlorhexidine Gluconate 15 ML UDCUP SSP SCH ×2 (08:55→20:50)
[2018-12-09] MEDS: Saccharomyces boulardii 250 MG CAP PO SCH (08:55)
[2018-12-09] MEDS: levETIRAcetam 500 MG TAB PO SCH ×2 (08:55→20:47)
[2018-12-09] MEDS: OXcarbazepine 150 MG TAB PO SCH ×2 (08:55→20:44)
[2018-12-09] MEDS: Potassium Chloride 10 MEQ TAB PO SCH ×2 (08:56→20:47)
[2018-12-09] MEDS: Carvedilol 6.25 MG TAB PO SCH ×2 (08:56→20:50)
[2018-12-09] MEDS: Ascorbic Acid 500 mg Chewable Tablet PO SCH (08:56)
[2018-12-09] MEDS: hydrALAZINE 25 MG TAB PO SCH ×3 (08:56→20:49)
[2018-12-09] MEDS: Multivitamin W/ Minerals 1 TAB PO SCH (08:56)
[2018-12-09] MEDS: Lisinopril 10 MG TAB PO SCH ×2 (08:56→20:48)
[2018-12-09] MEDS: Furosemide 40 MG TAB PO SCH ×2 (08:56→20:48)
[2018-12-09] MEDS: Acetaminophen 325 MG TAB PO PRN ×4 (08:57→23:26)
--- NOTE | 2018-12-09 10:37 | PRG ---
DATE OF SERVICE: 12/09/2018 SUBJECTIVE: The patient said she is feeling good this morning. She has been doing good with her eating. She is not having any trouble. She had continued to flush her G-tube twice today. Her Araujo catheter is functioning well. OBJECTIVE: GENERAL: The patient is lying in bed with the head elevated. She is alert, talkative, answers questions appropriately and appears in no distress. VITAL SIGNS: Her temperature is 98.3, pulse 60, respirations 18, O2 saturation 94% on room air, and blood pressure 128/66. LUNGS: Clear. HEART: Regular rate. EXTREMITIES: No edema. LABORATORY DATA: Her urinary output over the last 24 hours has been 1000 mL. ASSESSMENT: 1. Urosepsis. a. Presented with fever, acute encephalopathy. b. Urine and blood cultures, both positive for Proteus mirabilis, sensitive to cefepime. c. Complicated by a right hydroureteronephrosis requiring cystoscopy and placement of a right ureteral stent on 11/28/2018 by urologist, Dr. Aurelio Og and to be removed around 12/12/2018. d. Marked improvement. e. Transferred to [facility] on 12/03/2018 for continuation of the IV cefepime until 12/14/2018. f. Doing well on IV meropenem as of 12/06/2018. This is due to be continued until 12/14/2018. Due to have right ureteral stent removed by her urologist on visit with him on 12/11/2018. Due to see Dr. Franco, Infectious Disease on 2018. 2. History of a right basal ganglia hemorrhagic stroke on 02/28/2018 complicated by: a. Neurogenic bladder with retention requiring chronic indwelling Araujo catheter. b. Dense left hemiparalysis. c. Dysphagia that initially required enteral feeding that had been progressed only nighttime and now has not received any feeding for a week, tolerating a mechanical soft diet as of 12/03/2018. 1. Doing well with oral feeding as of 12/09/2018. 3. Diastolic dysfunction. a. No evidence of acute congestive heart failure. 4. History of atrial fibrillation. a. Status post multiple ablations and cardioversion. b. Status post pacemaker insertion. c. Remains in a regular rhythm with rate controlled. 5. Bipolar disorder. a. Controlled. 6. Hypothyroidism. 7. Asthma. 8. Constipation. 9. History of deep venous thrombosis of the left lower leg, requiring inferior vena cava placement on 03/15/2018. 10. Constipation, controlled. PLAN: Continue present care. The patient to see Dr. Og, her urologist, for removal of right ureteral stent on 12/11/[address] Franco, Infectious Disease on 12/10. We will order CBC, CMP, and CRP in the morning. Job ID: [id number] [facility]
[2018-12-09 11:20] LABS: ALT (SGPT) 16 U/L (8-55); AST (SGOT) 16 U/L (5-34); Albumin 2.9 g/dL (3.4-4.8); Alkaline Phosphatase 105 U/L (40-150); Anion Gap 13 mmol/L (10-20); BUN (Urea Nitrogen) 16 mg/dL (9.8-20.1); Bilirubin, Total 0.4 mg/dL (0.2-1.2); Calc. Creatinine Clearance 102 mL/min (70-130); Calcium 9.2 mg/dL (7.8-10.44); Carbon Dioxide 28 mmol/L (23-31); Chloride 97 mmol/L (98-107); Estimated GFR-MDRD 82; Globulin 3.2 g/dL (2.4-3.5); Glucose 144 mg/dL (83-110); Potassium 4.1 mmol/L (3.5-5.1); Protein, Total 6.1 g/dL (6.0-8.3); Sodium 134 mmol/L (136-145)
[2018-12-09 12:07] LABS: %Eosinophils 5.4 % (0.0-10.0); %Lymphocytes 6.6 % (21.0-51.0); %Monocytes 5.6 % (0.0-10.0); %Neutrophils 81.6 % (42.0-75.0); Mean Corpuscular HGB CONC 33.3 g/dL (32.0-36.0); Mean Corpuscular Volume 84.1 fL (78.0-98.0); Mean Platelet Volume 7.1 fL (7.4-10.4); Platelet Count 237 thou/uL (130-400); RBC Distribution Width 14.4 % (11.5-14.5); Red Blood Cell (RBC) Count 3.02 mill/uL (4.20-5.40); White Blood Cell (WBC) Count 7.4 thou/uL (4.8-10.8)
[2018-12-09 12:08] LABS: #Basophils 0.1 thou/uL (0.0-0.2); #Eosinphils 0.4 thou/uL (0.0-0.7); #Monocytes 0.4 thou/uL (0.11-0.59); %Basophils 0.8 % (0.0-1.0); Anisocytosis SLIGHT = 6-15 cells (100X) (0-5/hpf); Hypochromia SLIGHT = 6-15 cells (100X) (0-5/hpf); MDiff Complete? YES; Platelet Morphology Comment Appears Adequate
[2018-12-09] MEDS: Atorvastatin Calcium 10 MG TAB PO SCH (20:47)
[2018-12-09] MEDS: Escitalopram Oxalate 10 mg Tablet PO SCH (20:48)
[2018-12-10] MEDS: Thyroid 30 MG TAB PO SCH (06:29)
[2018-12-10] MEDS: Cefepime 2 GM in Sodium Chloride 0.9% 100 ML IVPB SCH ×2 (08:21→20:23)
[2018-12-10] MEDS: Potassium Chloride 10 MEQ TAB PO SCH ×2 (08:21→20:23)
[2018-12-10] MEDS: Lisinopril 10 MG TAB PO SCH ×2 (08:21→20:19)
[2018-12-10] MEDS: Chlorhexidine Gluconate 15 ML UDCUP SSP SCH ×2 (08:21→20:23)
[2018-12-10] MEDS: Furosemide 40 MG TAB PO SCH ×2 (08:22→20:22)
[2018-12-10] MEDS: OXcarbazepine 150 MG TAB PO SCH ×2 (08:22→20:18)
[2018-12-10] MEDS: hydrALAZINE 25 MG TAB PO SCH ×3 (08:22→20:19)
[2018-12-10] MEDS: Ascorbic Acid 500 mg Chewable Tablet PO SCH (08:22)
[2018-12-10] MEDS: levETIRAcetam 500 MG TAB PO SCH ×2 (08:22→20:21)
[2018-12-10] MEDS: Multivitamin W/ Minerals 1 TAB PO SCH (08:22)
[2018-12-10] MEDS: Saccharomyces boulardii 250 MG CAP PO SCH (08:22)
[2018-12-10] MEDS: Carvedilol 6.25 MG TAB PO SCH ×2 (08:36→20:22)
[2018-12-10] MEDS: Acetaminophen 325 MG TAB PO PRN ×2 (08:36→19:18)
--- NOTE | 2018-12-10 09:47 | PRG ---
DATE OF SERVICE: 12/10/2018 SUBJECTIVE: The patient said she had a good night. She is feeling good. She is doing good with her eating as she continues to work with Physical Therapy. OBJECTIVE: GENERAL: The patient is lying in bed with the head elevated about 30 degree. She is alert, talkative, appears comfortable, and in no distress. VITAL SIGNS: Her temperature is 97.6, pulse 67, her respirations are 16, O2 saturation 96% on room air, blood pressure 136/62. LUNGS: Clear. HEART: Regular rate. EXTREMITIES: No edema. NEUROLOGIC: The patient has good speech. She has a dense left hemiparalysis. GENITOURINARY: Her Araujo catheter has clear urinary output. Her output over the last 24 hours have been 3000 mL. Weight is 199, same as her admission weight. LABORATORY DATA: Her lab that was done on 12/09 shows an H and H of 9 and 26.9 with a white blood cell count 7400, 82% segs, 7% lymphocytes, and a platelet count of 237,000. Her sodium 134, potassium 4.1, BUN 16, creatinine 0.7, glucose 144, albumin 2.9. C-reactive protein 3.18. ASSESSMENT: 1. Urosepsis. a. Presented with fever, acute encephalopathy. b. Urine and blood cultures, both positive for Proteus mirabilis, sensitive to cefepime. c. Complicated by a right hydroureteronephrosis requiring cystoscopy and placement of a right ureteral stent on 11/28/2018 by urologist, Dr. Aurelio Og and to be removed around 12/12/2018. d. Marked improvement. e. Transferred to [facility] on 12/03/2018 for continuation of the IV cefepime until 12/14/2018. f. Doing well on IV meropenem as of 12/10. This is due to continue until 12/14/2018. Due to have a right ureteral stent removed by her urologist on 2018. 2. History of a right basal ganglia hemorrhagic stroke on 02/28/2018 complicated by: a. Neurogenic bladder with retention requiring chronic indwelling Araujo catheter. b. Dense left hemiparalysis. c. Dysphagia that initially required enteral feeding that had been progressed only nighttime and now has not received any feeding for a week, tolerating a mechanical soft diet as of 12/03/2018. 1. Doing well with oral feeding as of 12/10/2018. Weight is stable at 199. 3. Diastolic dysfunction. a. No evidence of acute congestive heart failure. 4. History of atrial fibrillation. a. Status post multiple ablations and cardioversion. b. Status post pacemaker insertion. c. Remains in a regular rhythm with rate controlled. 5. Bipolar disorder. a. Controlled. 6. Hypothyroidism. 7. Asthma. 8. Constipation. 9. History of deep venous thrombosis of the left lower leg, requiring inferior vena cava placement on 03/15/2018. 10. Constipation, controlled. PLAN: Continue present care. Nurses have sent the lab work from yesterday to Dr. Franco, Infectious Disease, who will determine whether or not he needs to see her today. She is scheduled to see her urologist tomorrow for removal of her right ureteral stent. Job ID: [id number] MTDD
[2018-12-10] MEDS: Oxybutynin 5 MG TAB PO SCH ×2 (10:24→20:22)
[2018-12-10 13:42] LABS: #Lymphocytes 0.5 thou/uL (1.20-3.40)
[2018-12-10] MEDS: Famotidine 20 MG TAB PO PRN (19:22)
[2018-12-10] MEDS: Escitalopram Oxalate 10 mg Tablet PO SCH (20:20)
[2018-12-10] MEDS: Atorvastatin Calcium 10 MG TAB PO SCH (20:21)
[2018-12-11] MEDS: Thyroid 30 MG TAB PO SCH (05:55)
[2018-12-11] MEDS: Chlorhexidine Gluconate 15 ML UDCUP SSP SCH ×2 (08:10→20:17)
[2018-12-11] MEDS: Acetaminophen 325 MG TAB PO PRN (08:10)
[2018-12-11] MEDS: levETIRAcetam 500 MG TAB PO SCH ×2 (08:11→20:15)
[2018-12-11] MEDS: Multivitamin W/ Minerals 1 TAB PO SCH (08:11)
[2018-12-11] MEDS: OXcarbazepine 150 MG TAB PO SCH ×2 (08:11→20:16)
[2018-12-11] MEDS: Ascorbic Acid 500 mg Chewable Tablet PO SCH (08:11)
[2018-12-11] MEDS: Potassium Chloride 10 MEQ TAB PO SCH ×2 (08:11→20:15)
[2018-12-11] MEDS: Furosemide 40 MG TAB PO SCH ×2 (08:11→20:15)
[2018-12-11] MEDS: Carvedilol 6.25 MG TAB PO SCH ×2 (08:11→20:15)
[2018-12-11] MEDS: Lisinopril 10 MG TAB PO SCH ×2 (08:11→20:17)
[2018-12-11] MEDS: Saccharomyces boulardii 250 MG CAP PO SCH (08:11)
[2018-12-11] MEDS: hydrALAZINE 25 MG TAB PO SCH ×3 (08:11→20:17)
[2018-12-11] MEDS: Oxybutynin 5 MG TAB PO SCH ×2 (08:11→20:17)
[2018-12-11] MEDS: Cefepime 2 GM in Sodium Chloride 0.9% 100 ML IVPB SCH ×2 (08:12→20:18)
[2018-12-11] MEDS: Atorvastatin Calcium 10 MG TAB PO SCH (20:15)
[2018-12-11] MEDS: Escitalopram Oxalate 10 mg Tablet PO SCH (20:15)
[2018-12-12] MEDS: Chlorhexidine Gluconate 15 ML UDCUP SSP SCH ×2 (09:39→21:59)
[2018-12-12] MEDS: Cefepime 2 GM in Sodium Chloride 0.9% 100 ML IVPB SCH ×2 (09:39→21:57)
[2018-12-12] MEDS: Multivitamin W/ Minerals 1 TAB PO SCH (09:40)
[2018-12-12] MEDS: Saccharomyces boulardii 250 MG CAP PO SCH (09:41)
[2018-12-12] MEDS: levETIRAcetam 500 MG TAB PO SCH ×2 (09:41→21:59)
[2018-12-12] MEDS: OXcarbazepine 150 MG TAB PO SCH ×2 (09:41→22:00)
[2018-12-12] MEDS: Carvedilol 6.25 MG TAB PO SCH ×2 (09:41→21:57)
[2018-12-12] MEDS: Potassium Chloride 10 MEQ TAB PO SCH ×2 (09:41→22:00)
[2018-12-12] MEDS: hydrALAZINE 25 MG TAB PO SCH ×3 (09:42→21:59)
[2018-12-12] MEDS: Ascorbic Acid 500 mg Chewable Tablet PO SCH (09:42)
[2018-12-12] MEDS: Furosemide 40 MG TAB PO SCH ×2 (09:42→21:59)
[2018-12-12] MEDS: Oxybutynin 5 MG TAB PO SCH ×2 (09:42→22:00)
[2018-12-12] MEDS: Lisinopril 10 MG TAB PO SCH ×2 (09:43→21:59)
[2018-12-12] MEDS: Acetaminophen 325 MG TAB PO PRN ×3 (09:43→22:01)
--- NOTE | 2018-12-12 12:22 | PRG ---
DATE OF SERVICE: 12/12/2018 SUBJECTIVE: The patient says she is feeling good today. Yesterday, she was taken by ambulance to see her urologist, Dr. Og, and the right ureteral stent was removed. The patient did not have any problems from this. OBJECTIVE: GENERAL: The patient is lying in bed, alert, appears comfortable, in no distress. VITAL SIGNS: Show a temperature of 97.0, pulse 65, blood pressure 130/61, respirations 18, O2 saturation 94% on room air. LUNGS: Clear. HEART: Regular rate. : Her urine in the Araujo catheter bag is light yellow and clear. ASSESSMENT: 1. Urosepsis. a. Presented with fever, acute encephalopathy. b. Urine and blood cultures, both positive for Proteus mirabilis, sensitive to cefepime. c. Complicated by a right hydroureteronephrosis requiring cystoscopy and placement of a right ureteral stent on 11/28/2018 by urologist, Dr. Aurelio Og and to be removed around 12/12/2018. d. Marked improvement. e. Transferred to [facility] on 12/03/2018 for continuation of the IV cefepime until 12/14/2018. f. Doing well on IV meropenem as of 12/12/2018. The right ureteral stent was removed by her urologist, Dr. Og, on 12/11/2018. 2. History of a right basal ganglia hemorrhagic stroke on 02/28/2018 complicated by: a. Neurogenic bladder with retention requiring chronic indwelling Araujo catheter. b. Dense left hemiparalysis. c. Dysphagia that initially required enteral feeding that had been progressed only nighttime and now has not received any feeding for a week, tolerating a mechanical soft diet as of 12/03/2018. 1. Doing well with oral feeding as of 12/10/2018. Weight is stable at 199. 3. Diastolic dysfunction. a. No evidence of acute congestive heart failure. 4. History of atrial fibrillation. a. Status post multiple ablations and cardioversion. b. Status post pacemaker insertion. c. Remains in a regular rhythm with rate controlled. 5. Bipolar disorder. a. Controlled. 6. Hypothyroidism. 7. Asthma. 8. Constipation. 9. History of deep venous thrombosis of the left lower leg, requiring inferior vena cava placement on 03/15/2018. 10. Constipation, controlled. PLAN: Continue present care. The patient is due to complete her meropenem on 12/14/2018 and then will be discharged back to the residential. Job ID: [id number] MTDD
[2018-12-12] MEDS: Thyroid 30 MG TAB PO SCH (12:28)
[2018-12-12 14:07] LABS: ALT (SGPT) 11 U/L (8-55); AST (SGOT) 14 U/L (5-34); Albumin 2.8 g/dL (3.4-4.8); Alkaline Phosphatase 112 U/L (40-150); Anion Gap 11 mmol/L (10-20); BUN (Urea Nitrogen) 19 mg/dL (9.8-20.1); Bilirubin, Total 0.2 mg/dL (0.2-1.2); Calc. Creatinine Clearance 93 mL/min (70-130); Calcium 9.2 mg/dL (7.8-10.44); Carbon Dioxide 30 mmol/L (23-31); Chloride 96 mmol/L (98-107); Estimated GFR-MDRD 78; Globulin 3.2 g/dL (2.4-3.5); Glucose 104 mg/dL (83-110); Potassium 4.3 mmol/L (3.5-5.1); Sodium 133 mmol/L (136-145)
[2018-12-12] MEDS: Atorvastatin Calcium 10 MG TAB PO SCH (21:57)
[2018-12-12] MEDS: Escitalopram Oxalate 10 mg Tablet PO SCH (21:59)
[2018-12-13 05:12] LABS: #Basophils 0.1 thou/uL (0.0-0.2); #Eosinphils 0.3 thou/uL (0.0-0.7); #Lymphocytes 0.8 thou/uL (1.20-3.40); #Monocytes 0.5 thou/uL (0.11-0.59); #Neutrophils 4.6 thou/uL (1.40-6.50); %Basophils 1.3 % (0.0-1.0); %Eosinophils 5.1 % (0.0-10.0); %Lymphocytes 12.1 % (21.0-51.0); %Neutrophils 73.6 % (42.0-75.0); Hemoglobin 9.2 g/dL (12.0-16.0); Mean Corpuscular HGB CONC 32.6 g/dL (32.0-36.0); Mean Corpuscular Hemoglobin 27.3 pg (27.0-31.0); Mean Corpuscular Volume 83.7 fL (78.0-98.0); Mean Platelet Volume 7.3 fL (7.4-10.4); Platelet Count 218 thou/uL (130-400); RBC Distribution Width 14.8 % (11.5-14.5); Red Blood Cell (RBC) Count 3.36 mill/uL (4.20-5.40); White Blood Cell (WBC) Count 6.2 thou/uL (4.8-10.8)
[2018-12-13] MEDS: Thyroid 30 MG TAB PO SCH (05:39)
[2018-12-13] MEDS: Cefepime 2 GM in Sodium Chloride 0.9% 100 ML IVPB SCH ×2 (09:25→21:52)
[2018-12-13] MEDS: Chlorhexidine Gluconate 15 ML UDCUP SSP SCH ×2 (09:26→21:52)
[2018-12-13] MEDS: levETIRAcetam 500 MG TAB PO SCH ×2 (09:26→21:53)
[2018-12-13] MEDS: Saccharomyces boulardii 250 MG CAP PO SCH (09:26)
[2018-12-13] MEDS: Potassium Chloride 10 MEQ TAB PO SCH ×2 (09:26→21:53)
[2018-12-13] MEDS: Ascorbic Acid 500 mg Chewable Tablet PO SCH (09:26)
[2018-12-13] MEDS: Carvedilol 6.25 MG TAB PO SCH ×2 (09:27→21:52)
[2018-12-13] MEDS: hydrALAZINE 25 MG TAB PO SCH ×3 (09:27→21:53)
[2018-12-13] MEDS: OXcarbazepine 150 MG TAB PO SCH ×2 (09:27→21:53)
[2018-12-13] MEDS: Furosemide 40 MG TAB PO SCH ×2 (09:27→21:53)
[2018-12-13] MEDS: Multivitamin W/ Minerals 1 TAB PO SCH (09:27)
[2018-12-13] MEDS: Oxybutynin 5 MG TAB PO SCH ×2 (09:27→21:53)
[2018-12-13] MEDS: Lisinopril 10 MG TAB PO SCH ×2 (09:28→21:53)
[2018-12-13 10:26] VITALS: BMI 28.0
[2018-12-13] MEDS: Acetaminophen 325 MG TAB PO PRN ×3 (10:32→21:56)
--- NOTE | 2018-12-13 14:16 | DIS ---
DATE OF ADMISSION: 12/03/2018 DATE OF DISCHARGE: 12/13/2018 FINAL DIAGNOSES: 1. Urosepsis. a. Presented with fever, acute encephalopathy. b. Urine and blood cultures, both positive for Proteus mirabilis, sensitive to cefepime. c. Complicated by a right hydroureteronephrosis requiring cystoscopy and placement of a right ureteral stent on 11/28/2018 by urologist, Dr. Aurelio Og and to be removed around 12/12/2018. d. Marked improvement. e. Transferred to [facility] on 12/03/2018 for continuation of the IV cefepime until 12/14/2018. f. Doing well on IV cefepime as of 12/13/2018. The right ureteral stent was removed by urologist, Dr. Og on 12/11/2018. The patient will complete the cefepime on the morning of 12/14/2018 and the PICC line will be removed. 2. History of a right basal ganglia hemorrhagic stroke on 02/28/2018 complicated by: a. Neurogenic bladder with retention requiring chronic indwelling Araujo catheter. b. Dense left hemiparalysis. c. Dysphagia that initially required enteral feeding that had been progressed only nighttime and now has not received any feeding for a week, tolerating a mechanical soft diet as of 12/03/2018. 1. Doing well with oral feeding as of 12/10/2018. Weight is stable at 199. 3. Diastolic dysfunction. a. No evidence of acute congestive heart failure. 4. History of atrial fibrillation. a. Status post multiple ablations and cardioversion. b. Status post pacemaker insertion. c. Remains in a regular rhythm with rate controlled. 5. Bipolar disorder. a. Controlled. 6. Hypothyroidism. 7. Asthma. 8. Constipation. 9. History of deep venous thrombosis of the left lower leg, requiring inferior vena cava placement on 03/15/2018. 10. Constipation, controlled. REASON FOR ADMISSION: The patient is a 73-year-old white female, who has a history of atrial fibrillation, for which she has undergone multiple ablations and pacemaker insertion. She has hypertension, bipolar disorder, and a history of DVT of the left leg, for which she has inferior vena caval umbrella device that was placed on 03/15/2018. She had a right basal ganglia hemorrhagic stroke on 02/28/2018, that has left her with a dense left hemiparalysis and neurogenic bladder with retention requiring chronic indwelling Araujo catheters. She has dysphagia and had been undergoing G-tube feeding that have improved. She was tolerating oral feedings with mechanical soft diet and just receiving nighttime enteral feedings. She resides at [facility] and requires assistance with all her ADLs. The patient has had frequent urinary tract infections and was hospitalized at [facility] on 11/28/2018 until 12/03/2018, with her urosepsis. Urine and blood cultures were both positive for Proteus mirabilis, sensitive to cefepime. She was found to have a right hydroureteronephrosis, required cystostomy and placement of a stent by Dr. Aurelio Og, urologist on 11/28/2018. She markedly improved on the IV cefepime and was left though weak and also needing continued IV antibiotics using the cefepime until 12/14/2018. She had a PICC line placed in the right arm and then she was transferred to [facility] for continuation of the IV cefepime and was scheduled to receive her last dose on the morning of 2018. She was due to see Dr. Og and followup for removal of the stents on 12/11. HOSPITAL COURSE: The patient was admitted to [facility] on 12/03/2018. She was very stable. Her lungs were clear. She had the left hemiparalysis and she has indwelling Araujo catheter with a right ureteral stent. During her hospital stay, she remained afebrile and her urine remained clear. She continued on the IV cefepime until the morning of 12/14/2018, then when that completes, her PICC line will be removed. The patient was seen in followup by Dr. Aurelio Og, the urologist on 12/11. He did a cystoscopy and removal of the right ureteral stent without problems. Her and Dr. Og discussed the pros and cons of a suprapubic catheter, if this is something that they desire to pursue, then they will recontact him. The patient was doing well on her oral feeding. During her hospitalization at [facility], she had not been getting the regular nighttime enteral feedings through her G-tube. It was elected to try her on oral feedings alone, which the family was in favor of. She was placed on a mechanical soft diet with extra sauces and gravy. She was offered Ensure Enlive Clear or pudding, if she ate less than 50% of her meal. Her G-tube was flushed with 240 mL of water twice today. She was doing well. During her hospitalization, her admission weight was 199 and then she dropped to 190, but remained at 190 as of 12/13. Her condition remained stable and the plans were for her to complete her IV antibiotics on the morning of 12/14/2018, then the PICC line will be removed, and then she will be discharged back to [facility]. DISPOSITION: DIET: Mechanical soft diet with extra sauces and gravy. Offer Ensure Enlive Clear or pudding, if she eats less than 50% of her medial. Her G-tube should be flushed with 240 mL of water every 12 hours. The patient's head of bed should remain at above 30 degrees. All her meals, she should eat upright or up in a chair. ACTIVITIES: Up in a Ame chair as she tolerates. PT, OT will evaluate her. Weekly weights. Indwelling Araujo catheter that will need to be changed out monthly. Lab in 2 weeks. The patient will need a CBC and BMP. MEDICATIONS: 1. Acetaminophen 650 mg p.o. every 4 hours as needed. 2. DuoNeb by nebulizer every 4 hours p.r.n. 3. Vitamin C 500 mg daily. 4. Atorvastatin 5 mg at bedtime. 5. Dulcolax suppository 10 mg 1 per rectum daily p.r.n. 6. Carvedilol 6.25 mg b.i.d. 7. Chlorhexidine gluconate 15 mL to swish and spit twice today. 8. Lexapro 20 mg at bedtime. 9. Famotidine 20 mg daily p.r.n. indigestion. 10. Furosemide 40 mg b.i.d. 11. Hydralazine 25 mg t.i.d. 12. Theragran-M vitamins 1 daily. 13. Keppra 500 mg b.i.d. 14. Lisinopril 20 mg b.i.d. 15. Loratadine 10 mg daily p.r.n. congestion. 16. Oxcarbazepine 600 mg daily in the evening. 17. Oxcarbazepine 300 mg daily in the morning. 18. Oxybutynin 5 mg b.i.d. 19. MiraLAX 17 g in 8 ounces water daily p.r.n. 20. KCl 10 mEq b.i.d. 21. [place] Thyroid 180 mg daily. FOLLOWUP: The patient will need to be seen in followup in 2 weeks. CODE STATUS: Full code. Job ID: [id number] MTDD
[2018-12-13] MEDS: Atorvastatin Calcium 10 MG TAB PO SCH (21:51)
[2018-12-13] MEDS: Escitalopram Oxalate 10 mg Tablet PO SCH (21:52)
[2018-12-13] MEDS: Famotidine 20 MG TAB PO PRN (21:57)
[2018-12-14] MEDS: Thyroid 30 MG TAB PO SCH (05:54)
[2018-12-14 07:07] VITALS: BP 129/60; TEMP 96.8
[2018-12-14] MEDS: Lisinopril 10 MG TAB PO SCH (08:53)
[2018-12-14] MEDS: OXcarbazepine 150 MG TAB PO SCH (08:53)
[2018-12-14] MEDS: Acetaminophen 325 MG TAB PO PRN (08:53)
[2018-12-14] MEDS: Chlorhexidine Gluconate 15 ML UDCUP SSP SCH (08:53)
[2018-12-14] MEDS: Ascorbic Acid 500 mg Chewable Tablet PO SCH (08:53)
[2018-12-14] MEDS: Multivitamin W/ Minerals 1 TAB PO SCH (08:53)
[2018-12-14] MEDS: levETIRAcetam 500 MG TAB PO SCH (08:54)
[2018-12-14] MEDS: Oxybutynin 5 MG TAB PO SCH (08:54)
[2018-12-14] MEDS: Furosemide 40 MG TAB PO SCH (08:54)
[2018-12-14] MEDS: hydrALAZINE 25 MG TAB PO SCH (08:54)
[2018-12-14] MEDS: Carvedilol 6.25 MG TAB PO SCH (08:54)
[2018-12-14] MEDS: Cefepime 2 GM in Sodium Chloride 0.9% 100 ML IVPB SCH (08:54)
[2018-12-14] MEDS: Saccharomyces boulardii 250 MG CAP PO SCH (08:54)
[2018-12-14] MEDS: Potassium Chloride 10 MEQ TAB PO SCH (08:54)
== END 2018-12-14 12:20 | DRG 864 ==
LOC: MADMS 14:35
PROVIDERS: ADMIT Family Medicine; ATTEND Family Medicine
DX: R50.9 Fever, unspecified (principal); G93.40 Encephalopathy, unspecified; I69.354 Hemiplegia and hemiparesis following cerebral infarction affecting left non-dominant side; N31.9 Neuromuscular dysfunction of bladder, unspecified; F31.9 Bipolar disorder, unspecified; E03.9 Hypothyroidism, unspecified; J45.909 Unspecified asthma, uncomplicated; K59.00 Constipation, unspecified; B96.4 Proteus (mirabilis) (morganii) as the cause of diseases classified elsewhere; Z86.718 Personal history of other venous thrombosis and embolism; Z93.1 Gastrostomy status; Z90.710 Acquired absence of both cervix and uterus; Z90.49 Acquired absence of other specified parts of digestive tract; Z88.0 Allergy status to penicillin; Z88.5 Allergy status to narcotic agent; Z95.0 Presence of cardiac pacemaker
CPT/HCPCS: 36415; 80053; 85025; 86140; J0692; J3490

== ENCOUNTER 2020-08-13 10:47 | Outpatient (CLI) | payer MEDICARE, MEDICAID ==
[2020-08-13 13:17] LABS: Bilirubin Negative (Negative); Blood, Urine Moderate (Negative); Clarity Slightly Cloudy (Clear); Glucose, Urine (Dipstick) Negative (Negative); Ketone, Urine Negative (Negative); Leukocyte Large (Negative); Nitrite Positive (Negative); Protein, Urine (Dipstick) 30 mg/dL (Neg-Trace); Specific Gravity, Urine 1.015 (1.005-1.030); Urobilinogen 0.2 mg/dL (Less than 2)
[2020-08-13 14:01] LABS: Bacteria/HPF 1+ HPF (None Seen); Calcium Oxalate Crystals 1+ HPF (None Seen); Squamous Epithelial None Seen HPF (0-3); WBC/HPF Greater Than 50 HPF (0-3)
== END 2020-08-13 10:48 | disposition home or self-care (01) ==
LOC: MADLABSP 10:47
PROVIDERS: ATTEND Family Medicine
DX: A41.9 Sepsis, unspecified organism (principal)
CPT/HCPCS: 81001; 87077; 87086; 87186

== ENCOUNTER 2021-02-21 16:09 | Inpatient (IN) | payer MEDICARE, MEDICAID ==
[2021-02-21 16:37] LABS: Bilirubin Negative (Negative); Blood, Urine Large (Negative); Glucose, Urine (Dipstick) Negative (Negative); Ketone, Urine Negative (Negative); Leukocyte Large (Negative); Nitrite Positive (Negative); Protein, Urine (Dipstick) 30 mg/dL (Neg-Trace); Specific Gravity, Urine 1.015 (1.005-1.030); Urobilinogen 0.2 mg/dL (Less than 2); pH, Urine 8.5 (5.0-9.0)
[2021-02-21 16:38] LABS: Bacteria/HPF 2+ HPF (None Seen); Clarity Cloudy (Clear); Mucous/LPF 2+ LPF (<2+); Squamous Epithelial 0-3 HPF (0-3); WBC/HPF Greater Than 50 HPF (0-3)
[2021-02-21 17:01] LABS: #Lymphocytes 0.6 thou/uL (1.20-3.40); #Monocytes 0.8 thou/uL (0.11-0.59); #Neutrophils 10.8 thou/uL (1.40-6.50); %Basophils 0.4 % (0.0-1.0); %Eosinophils 0.3 % (0.0-10.0); %Lymphocytes 4.8 % (21.0-51.0); %Monocytes 6.7 % (0.0-10.0); %Neutrophils 87.8 % (42.0-75.0); Hemoglobin 10.6 g/dL (12.0-16.0); Mean Corpuscular HGB CONC 31.9 g/dL (32.0-36.0); Mean Corpuscular Hemoglobin 28.8 pg (27.0-31.0); Mean Corpuscular Volume 90.4 fL (78.0-98.0); Mean Platelet Volume 8.2 fL (7.4-10.4); Platelet Count 210 thou/uL (130-400); RBC Distribution Width 13.4 % (11.5-14.5); Red Blood Cell (RBC) Count 3.68 mill/uL (4.20-5.40); White Blood Cell (WBC) Count 12.3 thou/uL (4.8-10.8)
[2021-02-21 17:16] LABS: ALT (SGPT) 34 U/L (8-55); AST (SGOT) 19 U/L (5-34); Albumin 3.1 g/dL (3.4-4.8); Alkaline Phosphatase 165 U/L (40-110); Anion Gap 16 mmol/L (10-20); BUN (Urea Nitrogen) 42 mg/dL (9.8-20.1); Bilirubin, Total 0.6 mg/dL (0.2-1.2); Calc. Creatinine Clearance 0 mL/min (70-130); Calcium 10.4 mg/dL (7.8-10.44); Carbon Dioxide 28 mmol/L (23-31); Chloride 95 mmol/L (98-107); Globulin 4.1 g/dL (2.4-3.5); Glucose 104 mg/dL (83-110); Magnesium 2.3 mg/dL (1.6-2.6); Potassium 4.6 mmol/L (3.5-5.1); Protein, Total 7.2 g/dL (5.8-8.1); Sodium 134 mmol/L (136-145)
[2021-02-21] MEDS ORDERED: Sodium Chloride 0.9% 100 ML ONE (17:55)
[2021-02-21] MEDS ORDERED: cefTRIAXone\\ROCEPHIN 1 GM VIAL ONE (17:55)
[2021-02-21 18:18] LABS: Lipase Less than 4 U/L (8-78)
[2021-02-21] MEDS ORDERED: Sodium Chloride 0.9% 1,000 ML ONE (18:58)
[2021-02-21] MEDS ORDERED: Acetaminophen 500 MG TAB ONE (23:40)
[2021-02-22] MEDS ORDERED: Senokot S 8.6-50 MG TAB PO PRN (02:31)
[2021-02-22] MEDS ORDERED: Bisacodyl 10 MG SUPP PR PRN (02:42)
[2021-02-22] MEDS ORDERED: Clotrimazole 1% Cream 15 GM TUBE TOP PRN (02:43)
[2021-02-22] MEDS ORDERED: Nystatin Powder 15 GM BOT TOP PRN (02:47)
[2021-02-22] MEDS: Sodium Chloride 0.9% 1,000 ML IV SCH ×2 (02:49→16:18)
[2021-02-22] MEDS ORDERED: Famotidine 20 MG TAB PO PRN (02:49)
[2021-02-22] MEDS ORDERED: Polyethylene Glycol OPTH DROP 15 ML BOT EA EYE PRN (02:52)
[2021-02-22] MEDS ORDERED: Triamcinolone 0.1% Cream 15 GM TUBE TOP PRN (02:52)
[2021-02-22 05:38] LABS: Band 1 % (5-11); Hemoglobin 9.1 g/dL (12.0-16.0); Lymphocytes 7 % (21-51); MDiff Complete? YES; Mean Corpuscular HGB CONC 32.3 g/dL (32.0-36.0); Mean Corpuscular Hemoglobin 29.1 pg (27.0-31.0); Mean Platelet Volume 8.3 fL (7.4-10.4); Monocytes 6 % (0-10); Neutrophil 86 % (42-75); Platelet Count 180 thou/uL (130-400); Platelet Morphology Comment Appears Adequate; RBC Morphology Normal; Red Blood Cell (RBC) Count 3.14 mill/uL (4.20-5.40); White Blood Cell (WBC) Count 7.9 thou/uL (4.8-10.8)
[2021-02-22 05:45] LABS: ALT (SGPT) 31 U/L (8-55); AST (SGOT) 23 U/L (5-34); Albumin 2.7 g/dL (3.4-4.8); Alkaline Phosphatase 160 U/L (40-110); Anion Gap 10 mmol/L (10-20); BUN (Urea Nitrogen) 45 mg/dL (9.8-20.1); Bilirubin, Total 0.4 mg/dL (0.2-1.2); Calc. Creatinine Clearance 45 mL/min (70-130); Calcium 9.6 mg/dL (7.8-10.44); Carbon Dioxide 29 mmol/L (23-31); Chloride 100 mmol/L (98-107); Globulin 3.4 g/dL (2.4-3.5); Glucose 152 mg/dL (83-110); Protein, Total 6.1 g/dL (5.8-8.1); Sodium 135 mmol/L (136-145)
[2021-02-22] MEDS ORDERED: Potassium Bicarbonate/Cit Ac 20 MEQ TAB PO SCH (08:00)
[2021-02-22] MEDS: Chlorhexidine Gluconate 15 ML UDCUP SSP SCH ×3 (08:07→21:39)
[2021-02-22] MEDS: OXcarbazepine 150 MG TAB PO SCH ×2 (08:07→21:31)
[2021-02-22] MEDS: levETIRAcetam 500 MG TAB PO SCH ×2 (08:07→21:31)
[2021-02-22] MEDS: Carvedilol 6.25 MG TAB PO SCH ×2 (08:07→16:20)
[2021-02-22] MEDS: Aspirin Chewable 81 MG TAB PO SCH (08:08)
[2021-02-22] MEDS: Oxybutynin 5 MG TAB PO SCH ×2 (08:08→21:32)
[2021-02-22] MEDS: Polyethylene Glycol 3350 17 GM Packet PO SCH (08:08)
[2021-02-22] MEDS: Potassium Bicarbonate/Cit Ac 20 MEQ TAB PO SCH (08:08)
[2021-02-22] MEDS ORDERED: Floranex 1 GM Packet PO SCH (09:00)
[2021-02-22] MEDS ORDERED: Ascorbic Acid 500 mg Chewable Tablet PO SCH (09:00)
[2021-02-22 09:18] VITALS: BMI 31.9
[2021-02-22] MEDS: Acetaminophen 325 MG TAB PO PRN ×3 (12:31→21:32)
[2021-02-22] MEDS: cefTRIAXone\\ROCEPHIN 1 GM in Sodium Chloride 0.9% 100 ML IVPB SCH (20:30)
[2021-02-22] MEDS: Atorvastatin Calcium 10 MG TAB PO SCH (21:25)
[2021-02-22] MEDS: Escitalopram Oxalate 10 mg Tablet PO SCH (21:30)
[2021-02-22] MEDS: Latanoprost 0.005% Ophth Soln 2.5 ml Bottle L EYE SCH (21:31)
[2021-02-23] MEDS: Acetaminophen 325 MG TAB PO PRN ×3 (04:53→20:36)
[2021-02-23] MEDS: Sodium Chloride 0.9% 1,000 ML IV SCH ×3 (04:53→20:58)
[2021-02-23 05:38] LABS: Band 1 % (5-11); Eosinophils 2 % (0-10); Hemoglobin 9.6 g/dL (12.0-16.0); Lymphocytes 8 % (21-51); MDiff Complete? YES; Mean Corpuscular HGB CONC 32.5 g/dL (32.0-36.0); Mean Corpuscular Hemoglobin 29.2 pg (27.0-31.0); Mean Corpuscular Volume 89.9 fL (78.0-98.0); Mean Platelet Volume 8.1 fL (7.4-10.4); Monocytes 4 % (0-10); Neutrophil 85 % (42-75); Platelet Count 188 thou/uL (130-400); Platelet Morphology Comment Appears Adequate; RBC Distribution Width 13.2 % (11.5-14.5); RBC Morphology Normal; Red Blood Cell (RBC) Count 3.29 mill/uL (4.20-5.40); White Blood Cell (WBC) Count 9.1 thou/uL (4.8-10.8)
[2021-02-23 05:45] LABS: Anion Gap 13 mmol/L (10-20); BUN (Urea Nitrogen) 40 mg/dL (9.8-20.1); Calc. Creatinine Clearance 55 mL/min (70-130); Calcium 9.5 mg/dL (7.8-10.44); Carbon Dioxide 25 mmol/L (23-31); Chloride 102 mmol/L (98-107); Glucose 120 mg/dL (83-110); Potassium 4.2 mmol/L (3.5-5.1); Sodium 136 mmol/L (136-145)
[2021-02-23] MEDS: Potassium Bicarbonate/Cit Ac 20 MEQ TAB PO SCH ×2 (08:00→10:09)
[2021-02-23] MEDS ORDERED: traMADol HCl 50 MG TAB PO PRN (08:28)
[2021-02-23] MEDS: Aspirin Chewable 81 MG TAB PO SCH (09:53)
[2021-02-23] MEDS: OXcarbazepine 150 MG TAB PO SCH ×2 (09:53→20:25)
[2021-02-23] MEDS: levETIRAcetam 500 MG TAB PO SCH ×2 (09:53→20:25)
[2021-02-23] MEDS: Oxybutynin 5 MG TAB PO SCH ×2 (09:54→20:25)
[2021-02-23] MEDS: Chlorhexidine Gluconate 15 ML UDCUP SSP SCH ×3 (09:54→20:26)
[2021-02-23] MEDS: Polyethylene Glycol 3350 17 GM Packet PO SCH (09:54)
[2021-02-23] MEDS: Carvedilol 6.25 MG TAB PO SCH ×2 (15:00→20:36)
[2021-02-23] MEDS: cefTRIAXone\\ROCEPHIN 1 GM in Sodium Chloride 0.9% 100 ML IVPB SCH (20:20)
[2021-02-23] MEDS: Atorvastatin Calcium 10 MG TAB PO SCH (20:25)
[2021-02-23] MEDS: Escitalopram Oxalate 10 mg Tablet PO SCH (20:25)
[2021-02-23] MEDS: Latanoprost 0.005% Ophth Soln 2.5 ml Bottle L EYE SCH (20:25)
[2021-02-24] MEDS: Acetaminophen 325 MG TAB PO PRN ×3 (03:29→19:55)
[2021-02-24 05:35] LABS: Band 1 % (5-11); Eosinophils 1 % (0-10); Hemoglobin 8.8 g/dL (12.0-16.0); Lymphocytes 7 % (21-51); MDiff Complete? YES; Mean Corpuscular HGB CONC 32.4 g/dL (32.0-36.0); Mean Corpuscular Hemoglobin 29.2 pg (27.0-31.0); Mean Corpuscular Volume 90.2 fL (78.0-98.0); Mean Platelet Volume 7.6 fL (7.4-10.4); Monocytes 3 % (0-10); Neutrophil 88 % (42-75); Platelet Count 213 thou/uL (130-400); Platelet Morphology Comment Appears Adequate; RBC Distribution Width 13.4 % (11.5-14.5); RBC Morphology Normal; White Blood Cell (WBC) Count 11.5 thou/uL (4.8-10.8)
[2021-02-24 05:45] LABS: Anion Gap 13 mmol/L (10-20); BUN (Urea Nitrogen) 34 mg/dL (9.8-20.1); Calc. Creatinine Clearance 60 mL/min (70-130); Calcium 9.1 mg/dL (7.8-10.44); Carbon Dioxide 23 mmol/L (23-31); Chloride 104 mmol/L (98-107); Glucose 117 mg/dL (83-110); Potassium 4.3 mmol/L (3.5-5.1); Sodium 136 mmol/L (136-145)
[2021-02-24] MEDS: Sodium Chloride 0.9% 1,000 ML IV SCH ×2 (07:37→14:18)
[2021-02-24] MEDS: levETIRAcetam 500 MG TAB PO SCH ×2 (07:38→21:41)
[2021-02-24] MEDS: Oxybutynin 5 MG TAB PO SCH ×2 (07:38→21:47)
[2021-02-24] MEDS: Aspirin Chewable 81 MG TAB PO SCH (07:39)
[2021-02-24] MEDS: Chlorhexidine Gluconate 15 ML UDCUP SSP SCH ×2 (07:39→21:34)
[2021-02-24] MEDS: Carvedilol 6.25 MG TAB PO SCH ×2 (07:40→17:39)
[2021-02-24] MEDS: OXcarbazepine 150 MG TAB PO SCH ×2 (07:40→21:39)
[2021-02-24] MEDS: Polyethylene Glycol 3350 17 GM Packet PO SCH (07:40)
[2021-02-24] MEDS ORDERED: Ondansetron ODT 4 MG TAB PO PRN (17:14)
[2021-02-24] MEDS: cefTRIAXone\\ROCEPHIN 1 GM in Sodium Chloride 0.9% 100 ML IVPB SCH (19:56)
[2021-02-24] MEDS: Escitalopram Oxalate 10 mg Tablet PO SCH (21:34)
[2021-02-24] MEDS: Atorvastatin Calcium 10 MG TAB PO SCH (21:42)
[2021-02-24] MEDS: Latanoprost 0.005% Ophth Soln 2.5 ml Bottle L EYE SCH (21:44)
[2021-02-25] MEDS: Acetaminophen 325 MG TAB PO PRN (00:13)
[2021-02-25 05:47] LABS: #Eosinphils 0.3 thou/uL (0.0-0.7); #Lymphocytes 0.6 thou/uL (1.20-3.40); #Monocytes 0.8 thou/uL (0.11-0.59); #Neutrophils 12.3 thou/uL (1.40-6.50); %Basophils 0.4 % (0.0-1.0); %Lymphocytes 4.5 % (21.0-51.0); %Monocytes 5.8 % (0.0-10.0); %Neutrophils 87.4 % (42.0-75.0); Hemoglobin 8.7 g/dL (12.0-16.0); Mean Corpuscular HGB CONC 32.3 g/dL (32.0-36.0); Mean Corpuscular Hemoglobin 29.3 pg (27.0-31.0); Mean Corpuscular Volume 90.7 fL (78.0-98.0); Mean Platelet Volume 7.8 fL (7.4-10.4); Platelet Count 266 thou/uL (130-400); RBC Distribution Width 13.5 % (11.5-14.5); Red Blood Cell (RBC) Count 2.96 mill/uL (4.20-5.40)
[2021-02-25 05:50] LABS: Anion Gap 10 mmol/L (10-20); BUN (Urea Nitrogen) 32 mg/dL (9.8-20.1); Calc. Creatinine Clearance 60 mL/min (70-130); Calcium 8.8 mg/dL (7.8-10.44); Carbon Dioxide 25 mmol/L (23-31); Chloride 104 mmol/L (98-107); Glucose 203 mg/dL (83-110); Potassium 4.3 mmol/L (3.5-5.1); Sodium 135 mmol/L (136-145)
[2021-02-25] MEDS: OXcarbazepine 150 MG TAB PO SCH (08:35)
[2021-02-25] MEDS: Oxybutynin 5 MG TAB PO SCH (08:35)
[2021-02-25] MEDS: levETIRAcetam 500 MG TAB PO SCH (08:35)
[2021-02-25] MEDS: Chlorhexidine Gluconate 15 ML UDCUP SSP SCH (08:35)
[2021-02-25] MEDS: Aspirin Chewable 81 MG TAB PO SCH (08:35)
[2021-02-25] MEDS: Polyethylene Glycol 3350 17 GM Packet PO SCH (08:35)
[2021-02-25] MEDS: Carvedilol 6.25 MG TAB PO SCH (08:36)
[2021-02-25 14:11] VITALS: BP 106/70; TEMP 98.8
== END 2021-02-25 12:45 | DRG 699 ==
LOC: MADERS 16:09 → OBSVTOIN 22:49 → MADMS 22:49
PROVIDERS: ADMIT Family Medicine; ATTEND Family Medicine
DX: T83.510A Infection and inflammatory reaction due to cystostomy catheter, initial encounter (principal); N39.0 Urinary tract infection, site not specified; I69.354 Hemiplegia and hemiparesis following cerebral infarction affecting left non-dominant side; N17.9 Acute kidney failure, unspecified; G93.49 Other encephalopathy; F31.9 Bipolar disorder, unspecified; I48.91 Unspecified atrial fibrillation; E03.9 Hypothyroidism, unspecified; J45.909 Unspecified asthma, uncomplicated; E78.5 Hyperlipidemia, unspecified; N31.9 Neuromuscular dysfunction of bladder, unspecified; M54.5 Low back pain; E86.0 Dehydration; K59.00 Constipation, unspecified; Y84.6 Urinary catheterization as the cause of abnormal reaction of the patient, or of later complication, without mention of misadventure at the time of the procedure; Z86.718 Personal history of other venous thrombosis and embolism; Z90.49 Acquired absence of other specified parts of digestive tract; Z90.89 Acquired absence of other organs; Z90.710 Acquired absence of both cervix and uterus; Z95.0 Presence of cardiac pacemaker; Z93.1 Gastrostomy status
CPT/HCPCS: 36415; 80048; 80053; 81003; 81015; 83690; 83735; 84443; 84484; 85025; 87086; 93005; 96365; J0696; J3490; J7050